=== PATIENT | male | born 1945 | race Caucasian/White ===

== ENCOUNTER 2016-06-15 07:19 | Observation (INO) | payer MEDICARE ==
--- NOTE | 2016-06-15 08:32 | RAD ---
Indication: Shortness of breath. 2 views of the chest are reviewed. There is a large left pneumothorax noted. Right lung field is clear. Pacemaker leads are in place. Patient status post changed sternal thoracotomy. IMPRESSION: Large left pneumothorax is noted.
[2016-06-15 08:43] LABS: Hematocrit 44 % (42-52); Hemoglobin 14.6 g/dl (14.0-18.0); Mean Corpuscular HGB Conc 33 g/dl (31-36); Mean Corpuscular Hemoglobin 30 pg (27-31); Mean Corpuscular Volume 89 fL (80-94); Mean Platelet Volume 9 um3 (7.4-10.4); Red Blood Count 4.93 10^6/ul (4.0-5.4); Red Cell Distribution Width 14 % (10.5-15)
[2016-06-15 08:54] LABS: Albumin 4.3 g/dL (3.2-5.2); BUN/Creatinine Ratio 22.2 (8-20); Calcium 9.7 mg/dL (8.6-10.3); EGFR African American 121.5 (>60); EGFR Non-African American 94.5 (>60); Globulin 2.8 g/dL (2-4); Potassium 3.7 mmol/L (3.5-5.0); Total Bilirubin 0.6 mg/dL (0.2-1.0); Total Protein 7.1 g/dL (6.4-8.9)
--- NOTE | 2016-06-15 09:13 | ED ---
Suresh Baugh Billy, scribed for Frankie Riley MD on 06/15/16 at 0741 . Shortness of Breath - HPI Summary HPI Summary: Patient is a 70 y/o male who presents to [facility] with intermittent SOB for 6 days. He describes the SOB as intermittent and worse with exertion, but not affected by recumbent position. Pt visited Dr. Lawson's office for these symptoms yesterday. Pt continued to experience SOB overnight and this morning. He denies CP at any time since onset, and he has no other complaints at this time. Patient reports ICD placement 6 days ago. FHx significant for CAD. - History of Current Complaint Chief Complaint: EDShortnessOfBreath Time Seen by Provider: 06/15/16 07:21 Hx Obtained From: Patient Onset/Duration: Gradual Onset, Lasting Days, Still Present Timing: Intermittent Episodes Lasting: Current Severity: Moderate Aggrevating Factors: Movement - Exertion. Alleviating Factors: Nothing - Allergy/Home Medications Allergies/Adverse Reactions: Allergies Allergy/AdvReac Type Severity Reaction Status Date / Time No Known Allergies Allergy Verified 06/15/16 07:35 PMH/Surg Hx/FS Hx/Imm Hx Endocrine/Hematology History: Reports: Hx Anticoagulant Therapy, Hx Anemia Denies: Hx Diabetes Cardiovascular History: Reports: Hx Angina - 1994, Hx Coronary Artery Disease, Hx Hypercholesterolemia, Hx Hypertension, Hx Valvular Heart Disease - artificial valve Denies: Hx Pacemaker/ICD Respiratory History: Denies: Hx Asthma History: Denies: Hx Renal Disease Musculoskeletal History: Reports: Hx Back Problems Denies: Hx Rheumatoid Arthritis, Hx Osteoporosis Sensory History: Reports: Hx Contacts or Glasses Denies: Hx Hearing Aid Opthamlomology History: Reports: Hx Contacts or Glasses Neurological History: Reports: Other Neuro Impairments/Disorders - PAIN CLINIC PT Psychiatric History: Reports: Hx Anxiety Denies: Hx Panic Disorder - Surgical History Surgery Procedure, Year, and Place: BYPASS- HEART VALVE 03/06/03 - [facility]A -101 ( PT HAS A CARD- WAS INFORMED TO BRING WITH HIM OR WON'T BE SCANNED) CONDITIONAL 5 UP TP 3T- SPAT.GRAD MAX 3000 Infectious Disease History: No Infectious Disease History: Denies: Traveled Outside the [place] in Last 30 Days - Family History Known Family History: Positive: Cardiac Disease - Social History Alcohol Use: Daily Alcohol Amount: 1/day,maybe Substance Use Type: Reports: None Smoking Status (MU): Former Smoker Type: Cigarettes Have You Smoked in the Last Year: No Review of Systems Negative: Chest Pain Positive: Shortness Of Breath All Other Systems Reviewed And Are Negative: Yes Physical Exam Triage Information Reviewed: Yes Vital Signs On Initial Exam: Initial Vitals Temp Pulse Resp BP Pulse Ox 98.4 F 83 15 180/79 96 06/15/16 07:31 06/15/16 07:31 06/15/16 07:31 06/15/16 07:31 06/15/16 07:31 Vital Signs Reviewed: Yes Appearance: Positive: Well-Appearing, No Pain Distress Skin: Positive: Warm, Skin Color Reflects Adequate Perfusion, Dry Head/Face: Positive: Normal Head/Face Inspection Eyes: Positive: Normal Neck: Positive: Supple, Nontender Respiratory/Lung Sounds: Positive: Decreased Breath Sounds - Very reduced breath sounds on the left., Other - Tachypnic. Cardiovascular: Positive: RRR Abdomen Description: Positive: Nontender, Soft Bowel Sounds: Positive: Present Musculoskeletal: Positive: Normal Neurological: Positive: Normal Psychiatric: Positive: Normal Diagnostics - Vital Signs Vital Signs Temp Pulse Resp BP Pulse Ox 06/15/16 07:31 98.4 F 83 15 180/79 96 - Laboratory Lab Results: Lab Results 06/15/16 06/15/16 06/15/16 Range/Units 07:46 07:46 07:46 WBC 9.0 (3.5-10.8) 10^3/ul RBC 4.93 (4.0-5.4) 10^6/ul Hgb 14.6 (14.0-18.0) g/dl Hct 44 (42-52) % MCV 89 (80-94) fL MCH 30 (27-31) pg MCHC 33 (31-36) g/dl RDW 14 (10.5-15) % Plt Count 156 (150-450) 10^3/ul MPV 9 (7.4-10.4) um3 Neut % (Auto) 80.8 (38-83) % Lymph % (Auto) 8.6 L (25-47) % Linn % (Auto) 6.9 (1-9) % Eos % (Auto) 3.4 (0-6) % Baso % (Auto) 0.3 (0-2) % Absolute Neuts (auto) 7.3 (1.5-7.7) 10^3/ul Absolute Lymphs (auto) 0.8 L (1.0-4.8) 10^3/ul Absolute Monos (auto) 0.6 (0-0.8) 10^3/ul Absolute Eos (auto) 0.3 (0-0.6) 10^3/ul Absolute Basos (auto) 0 (0-0.2) 10^3/ul Absolute Nucleated RBC 0 10^3/ul Nucleated RBC % 0 INR (Anticoag Therapy) 4.18 H (0.89-1.11) Sodium 136 (133-145) mmol/L Potassium 3.7 (3.5-5.0) mmol/L Chloride 104 (101-111) mmol/L Carbon Dioxide 24 (22-32) mmol/L Anion Gap 8 (2-11) mmol/L BUN 18 (6-24) mg/dL Creatinine 0.81 (0.67-1.17) mg/dL Est GFR ( Amer) 121.5 (>60) Est GFR (Non-Af Amer) 94.5 (>60) BUN/Creatinine Ratio 22.2 H (8-20) Glucose 121 H (70-100) mg/dL Calcium 9.7 (8.6-10.3) mg/dL Total Bilirubin 0.60 (0.2-1.0) mg/dL AST 24 (13-39) U/L ALT 18 (7-52) U/L Alkaline Phosphatase 88 (34-104) U/L Total Protein 7.1 (6.4-8.9) g/dL Albumin 4.3 (3.2-5.2) g/dL Globulin 2.8 (2-4) g/dL Albumin/Globulin Ratio 1.5 (1-3) Result Diagrams: 06/15/16 07:46 06/15/16 07:46 Lab Statement: Any lab studies that have been ordered have been reviewed, and results considered in the medical decision making process. - Radiology CXR Radiology Interpretation Completed By: Radiologist - IMPRESSION: Large left pneumothorax is noted. - EKG 0724 EKG Interpretation: NSR 77 bpm, no ST elevation Re-Evaluation - Re-Evaluation First Eval Re-Evaluation Time: 08:05 - CXR results reviewed with pt. Course/Dx - Course Course Of Treatment: Manan Emmanuel presented C/O SOB since placement of his ICD on last. No C/O CP. He had decreased breath sounds on the left ad a CXR confirmed a large pneumothorax. - Diagnoses Provider Diagnoses: Pneumothorax on left - Physician Notifications Discussed Care of Patient With: Dr. Hudson @ 0804. Will see pt in ED. Discharge - Discharge Plan Condition: Stable Disposition: ADMITTED TO [facility] The documentation as recorded by the Suresh copeland Billy accurately reflects the service I personally performed and the decisions made by me, Frankie Riley MD.
[2016-06-15] MEDS: NS 0.9% 1000 ML* 1,000 ML IV SCH ×2 (09:17→14:41)
--- NOTE | 2016-06-15 10:27 | HP ---
HISTORY AND PHYSICAL: DATE OF ADMISSION: 06/15/16. REASON FOR ADMISSION: Large left pneumothorax. HISTORY OF PRESENT ILLNESS: Mr. Manan Emmanuel is a 70-year-old gentleman who lives here in [place] who underwent placement of a single ICD at the [facility] on 06/09/2016. Diagnosed apparently with sustained ventricular tachycardia after he had had a elective hip surgery in [place] late last year and was noted to have some arrhythmias. This most recent procedure was done as an outpatient, and he does state that a chest x-ray was obtained post-procedure that was unremarkable. Over the last several days, he's noted some increasing shortness of breath, especially when walking downstairs. He had no chest pain, hemoptysis, and noted no other abnormality; but, as today seemed to be worse, he presented to the emergency room. On admission to the emergency room, he was noted to have stable normal vital signs with a heart rate of 83 with adequate saturations and blood pressure. A chest x-ray was obtained, which I did review. This shows the ICD placement in good position and a large left pneumothorax. Surgical consultation was obtained; and, after review, the patient is to be treated for his left pneumothorax with a tube thoracostomy and admission to the hospital. PAST MEDICAL HISTORY: 1. Coronary artery disease. 2. Aortic valve disease. 3. Hypertension. 4. Osteoarthritis. 5. Hypercholesterolemia. 6. Lumbosacral spine spondylosis with chronic pain. 7. Ventricular tachycardia. 8. Gastroesophageal reflux disease. PAST SURGICAL HISTORY: 1. Aortic valve replacement with a prosthetic aortic valve. 2. Left hip replacement. 3. Recent ICD placement. 4. Coronary bypass grafting in 2002 with aortic valve replacement, #[address] [facility]. ALLERGIES: 1. COREG. 2. AMBIEN. MEDICATIONS: Include: 1. Warfarin 10 mg daily. 2. Cialis 20 mg p.r.n. 3. Aldactone 25 mg daily. 4. Zoloft 50 mg daily. 5. Crestor 40 mg daily. 6. Iron. 7. Avapro 150 mg daily. 8. Hydrocodone p.r.n. pain. 9. Xanax 0.5 mg p.r.n. SOCIAL HISTORY: He is . 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 The patient is a former smoker; does not smoke. REVIEW OF SYSTEMS: Cerebrovascular: He had no dizziness or visual disturbances. Cardiovascular: No chest pain, shortness of breath. Pulmonary: As per above. GI: No recent reflux. No dysphagia. He has had no abdominal discomfort. Musculoskeletal: He has chronic low back discomfort. PHYSICAL EXAMINATION GENERAL: He is a well-developed slender male with normal attention to grooming. He appears to be in no acute distress, awake, alert and conversive. VITAL SIGNS: Temperature 98.4, pulse 83, respirations 15, oxygen saturation 96% , blood pressure 180/79. HEENT: His trachea was midline. Oral mucosa is slightly dry. NECK: There is no crepitus in the neck or supraclavicular areas. There is no jugular venous distension. LUNGS: Markedly decreased breath sounds on the left side. He has normal breath sounds on the right side. He has a well-healed incision with slight ecchymosis in the left anterior chest wall with a palpable ICD in place without signs of infection or drainage. There is no crepitus along the lateral posterior anterior chest wall. HEART: Regular rate and rhythm without murmurs, rubs, or gallops. ABDOMEN: Soft, nondistended. No tenderness or organomegaly. LOWER EXTREMITIES: Showed no cyanosis, edema. LABORATORY DATA: Values include an INR pending. I did review the chest x-ray today which shows a complete collapse of the left lung without evidence of midline shift, tracheal deviation. IMPRESSION: 1. Complete left pneumothorax status post percutaneous placement of an ICD on June 09, 2016 at the [facility]. 2. Medical problems as outlined above. The patient is on Coumadin. 3. Laboratory values are pending. PLAN: 1. Patient will be kept NPO and started on IV fluids. 2. We will await laboratory values including the INR. He has continued to take his Coumadin over the last several days. 3. This will require tube decompression, and I discussed the options with the patient including placement of a percutaneous pneumothorax catheter versus a small open chest tube insertion. My inclination is to proceed with a small chest tube, in light of the fact that he is probably anticoagulated, and for definitive management. I discussed the procedure both with him and his , and the fact that he will be admitted post-procedurally for careful observation and chest tube management. Risks are, but not limited to bleeding, infection, pulmonary injury, cardiovascular injury to the heart and great vessels, discomfort, and monitoring the procedure were all discussed. 4. We will be obtaining his records from the [facility]. 5. I have discussed his care with Dr. Viviana García from Cardiology; she is reviewing his records, and will give recommendations for the ICD once we have the old records. 6. The findings and the care were discussed with the patient and his . He was anticipating travel tonight on vacation with a flight. I instructed him that it would be at least several weeks after the lung is completely healed, possibly as long as a month, before he would be permitted air travel and their questions in this regard were answered. CC: Dwight Lawson MD; Wes Steward MD; [facility], [facility] [address] [id number]/[facility] #: [id number] MTDD
[2016-06-15] MEDS ORDERED: fentaNYL* 50 MCG/ML 2 ML VIAL (100 MCG VIAL) ONE (12:03)
[2016-06-15] MEDS ORDERED: Midazolam* 1 MG/ML 5 ML VIAL (5 MG) ONE (12:03)
[2016-06-15] MEDS ORDERED: KETAMINE HCL* 50 MG/ML 10 ML VIAL ONE (12:03)
[2016-06-15] MEDS ORDERED: Ondansetron INJ* 2 MG/ML VIAL ONE (12:07)
[2016-06-15] MEDS ORDERED: Propofol* 10 MG/ML 20 ML BTL IV PUSH ONE (12:07)
[2016-06-15] MEDS ORDERED: Ketorolac INJ* 30 MG/ML 1 ML VIAL ONE (12:07)
[2016-06-15] MEDS ORDERED: Lidocaine 2% PF * 5 ML VIAL ONE (12:07)
[2016-06-15] MEDS ORDERED: ceFAZolin 2 GM PREMIX (*) 2 GM/50 ML BAG IVPB ONE (12:16)
[2016-06-15] MEDS ORDERED: Lidocain 1% EPI 1:100,000 * 30 ML MDV ONE (12:35)
--- NOTE | 2016-06-15 12:57 | SURGPN ---
Brief Operative Note - Surgery Procedures: Procedures Pre-OP Diagnoses: L ptx Post-op Diagnosis: same Procedure: Left tube thoracostomy Surgeon: Lisa Asst: none Anethesia: local AGUSTIN Polanco EBL: minimal IVF: crystalloid Specimen: none Drains: 28Fr chest tube to pleurovac
[2016-06-15] MEDS ORDERED: TADALAFIL 20 MG PO PRN (13:00)
[2016-06-15] MEDS ORDERED: Acetaminophen TAB* 325 MG PO PRN (13:18)
[2016-06-15] MEDS ORDERED: HYDROmorphone INJ* 1 MG/ML CARPUJECT SYRINGE IV PRN (13:18)
[2016-06-15] MEDS ORDERED: DiMENhydriNATE IV* 50 MG/ML VIAL IV PUSH PRN (13:18)
[2016-06-15] MEDS ORDERED: HYDROcodone/ACETAMIN 5-325 MG* 1 TAB PO PRN (13:18)
--- NOTE | 2016-06-15 14:08 | RAD ---
Indication: Chest tube placement. Left pneumothorax. Single frontal view of the chest performed at 1315 hours was reviewed. Comparison is made with previous exam dated earlier the same day. Left chest tube is in place. Pneumothorax has been reduced. Right lung field is clear. IMPRESSION: LEFT CHEST TUBE IN PLACE WITH REDUCTION OF LEFT-SIDED PNEUMOTHORAX.
[2016-06-15] MEDS: oxyCODONE/Acetamin 5/325 MG* TAB PO PRN ×3 (14:40→23:37)
--- NOTE | 2016-06-15 20:35 | CONS ---
CARDIOLOGY CONSULTATION: DATE OF CONSULT: 06/15/16 REASON FOR CONSULTATION: Preoperative evaluation for chest tube for pneumothorax. CHIEF COMPLAINT: Shortness of breath. HISTORY OF PRESENT ILLNESS: Mr. Emmanuel is a 70-year-old patient followed by Dr. Dwight Lawson with a mechanical aortic valve, on chronic Coumadin. He has known atherosclerotic heart disease. He has cardiomyopathy, moderate to severe. He has a history of nonsustained ventricular tachycardia and underwent AICD implantation last week on . He, 2 days later on Monday, started to feel short of breath, but thought it was normal, did not say anything. He was seen in the office yesterday by a physician drug safety assistant and he admits he did not tell her that he had any shortness of breath. Today, it was worse, so he presented to the emergency room, where he was found to have a large pneumothorax of the left side and he will require a chest tube. Because his INR is 4, Dr. Hudson feels it is best for this to be done in the operating room as opposed to at the bedside. The patient denies any palpitations, racing of the heart, chest pain, pressure, heaviness, just the progressive dyspnea. PAST MEDICAL HISTORY: The patient has a past medical history of coronary artery disease, status post bypass surgery in 2002; cardiac catheterization 2009 showed 50% occlusion of the LAD, severe occlusive disease of the circumflex , mild disease of the right coronary artery disease with a patent ALEJANDRA to the LAD, and saphenous vein graft to the OM1 was patent; history of aortic insufficiency with aortic valve replacement at [facility] (#[address] mechanical aortic valve); history of supraventricular tachycardia, status post ablation in December 2002 at [facility]; and ventricular tachycardia, status post EP studies and single-chamber AICD implantation on 06/24. He has hypertension, dyslipidemia, and intermittently cardiomyopathy. Hypertensive heart disease, echo 01/07/16 ejection fraction 50% to 55% with mild left ventricular hypertrophy, base of the lateral wall hypokinetic, and good mechanical valve function. PAST SURGICAL HISTORY: Includes a bypass surgery in 2002 with aortic valve replacement in 2002, total hip replacement in March 2016, and AICD implantation in June 2016. OUTPATIENT MEDICATIONS: Include: 1. Metoprolol 25 mg a day. 2. Coumadin. 3. Avapro 150 mg a day. 4. Aldactone 25 mg a day. 5. Cialis p.r.n. 6. Iron 150 mg a day. 7. Sertraline 25 mg a day. 8. Xanax 0.5 mg a day. FAMILY HISTORY: Positive in that his father had a history of atherosclerotic heart disease in his 50s. 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 Stopped smoking in 2002. Drinks an alcoholic beverage a day. REVIEW OF SYSTEMS: Negative for fevers, chills, sweats, palpitations, racing, dizziness, chest pain, pressure, or heaviness. It is positive for the shortness of breath. No hematuria, dysuria, or change in appetite. All other review of systems was negative. PHYSICAL EXAM: General: He is a fit-appearing older gentleman, in no acute medical distress, mildly tachypneic, lying comfortably at 30 degrees, able to talk without gasping or appearing winded. Vital signs: The patient is 5 feet 8 inches, weighs 170 pounds with a BMI of 26. Vitals in the emergency room, blood pressure initially 180/79, pulse was 83, temperature 98.4, and oxygen saturation 96% on room air with a respiratory rate of 20. Skin: Warm, dry. No rashes or lesions. Pacemaker incision in the left subclavian fossa has nicely healed. No hematoma or ecchymosis. No evidence of infection. HEENT: Pupils equal and round. Mucous membranes moist. Neck: Without appreciable increased JVP. Breath sounds on the left side markedly diminished compared with the right, but audible. Abdomen: Soft and nontender. No epigastric discomfort. Extremities: Lower extremities are free of edema. DIAGNOSTIC STUDIES: Chest x-ray showed complete collapse of the left lung and defibrillator lead in good position. A 12-lead ECG on arrival this morning shows normal sinus rhythm at 77 beats per minute, QRS axis +90, normal AV and IV conduction time, and subtle ST flattening in the inferior leads, but no evidence of ischemia. LABORATORY DATA: White count 9, hemoglobin 14.6, and platelets 156. INR 4.18. Sodium 136, potassium 3.7, chloride 104, bicarb 24, BUN 18, creatinine 0.81, and glucose 121. ALT of 18. AICD report from [place] confirmed he has a [employer] single-chamber device. Michael programming was VVI at 40, tachy programming was to treat for tachycardia of 200 beats per minute or greater (monitor 171 beats per minute to 199 beats per minute). IMPRESSION: In summary, Manan Emmanuel is a 70-year-old gentleman, 5 days status post AICD implantation with progressive dyspnea with chest x-ray revealing a large pneumothorax on the left side, the site of his device implant. I concur with Dr. Hudson that he needs a chest tube and I concur that he will have the most control in the operating room. His mechanical aortic valve complicates issues, although it is not a new valve, there is still risk for thrombosis if we completely reverse him. I agree with Dr. Hudson's plans of FFP perioperatively but no vitamin K. We will then adjust his Coumadin dosage to aim for an INR of 2 to 3. I would keep him on his beta-laura perioperatively to minimize the risk of additional ventricular ectopy. Intraoperatively, options to minimize the risk of oversensing from Bovie with the short bursts of cautery, alternatively a magnet could be placed over the device, but this would turn off the defibrillator function and the anesthesiologist/OR would need to be prepared to externally cardiovert if needed. The patient expressed his frustration over these events. He was ready to go for a holiday in [place]. Additional recommendations will be made pending his clinical course and response to the chest tube. If he displays evidence of ventricular ectopy or atrial ectopy, there would be an option to give him additional potassium replacement to get his potassium between 4 and 5. CC: Dwight Lawson MD; Jovon Hudson MD; Dr. Jesus Pace * [id number]/[facility] #: [id number] [facility]
[2016-06-15] MEDS: ALPRAZolam TAB* 0.5 MG PO PRN ×2 (21:10→21:13)
[2016-06-16] MEDS ORDERED: Morphine INJ* 2 MG/ML 1 ML CARPUJECT ONE (00:14)
[2016-06-16] MEDS: oxyCODONE/Acetamin 5/325 MG* TAB PO PRN (00:21)
[2016-06-16] MEDS: Morphine INJ* 2 MG/ML 1 ML CARPUJECT IV PRN ×2 (00:21→06:45)
[2016-06-16] MEDS ORDERED: oxyCODONE/Acetamin 5/325 MG* TAB PO PRN (01:07)
[2016-06-16] MEDS: NS 0.9% 1000 ML* 1,000 ML IV SCH (04:22)
--- NOTE | 2016-06-16 08:55 | OP ---
CC: Dwight Lawson MD; Wes Steward MD; [facility] PROCEDURE NOTE: DATE OF OPERATION: 06/15/16 DATE OF : 47 SURGEON: Jaguar Gonzalez MD ROOF ASSEMBLER: None. ANESTHESIOLOGIST: Cassandra Polanco MD ANESTHESIA: Local MAC. PRE-OP DIAGNOSIS: Left pneumothorax. POST-OP DIAGNOSIS: Left pneumothorax. OPERATIVE PROCEDURE: Left tube thoracostomy. ESTIMATED BLOOD LOSS: Minimal. FLUIDS: Minimal crystalloid fluid given. SPECIMEN: None. DRAIN: 28-Uzbek chest tube to Pleur-evac. DESCRIPTION OF PROCEDURE: The patient was identified in the preoperative area, case was discussed w sinai Hudson. I went over the risks, benefits, and alternatives to chest tube placement with t he patient who agreed with the consideration was that this pneumothorax is secondary to AICD placeme nt last week. The patient was marked, taken to the operating room, and placed on the operating table in supine pos ition. General sedation was given. The patient's left chest was prepped and draped in the standard surgical fashion. A time-out was performed. The patient has gotten preoperative antibiotics. At approximately the fifth intercostal space, injection of lidocaine with epinephrine was done and i ncision was made. This was deepened down through the subcutaneous tissue with electrocautery right overlying the fifth intercostal space. A 28-Uzbek chest tube with trocar was then utilized, entere d into the chest. Trocar backed off and large gush of air came from the chest tube, which was then connected to Pleur-evac. It was sutured to the skin with 0 Surgipro sutures and sterile dressing wa s applied. The patient tolerated the procedure well, was brought back to the PACU where a postop est x-ray showed re-expansion of the left lung. [id number]/[facility] #: [id number]
[2016-06-16] MEDS ORDERED: WARFARIN 10 MG PO SCH (09:00)
[2016-06-16] MEDS ORDERED: Losartan TAB* 25 MG PO SCH (09:00)
[2016-06-16] MEDS ORDERED: Spironolactone TAB* 25 MG PO SCH (09:00)
[2016-06-16] MEDS ORDERED: Metoprolol Succinate XL TAB* 25 MG PO SCH (09:00)
[2016-06-16] MEDS ORDERED: Atorvastatin* 80 MG TAB PO SCH (09:00)
[2016-06-16] MEDS ORDERED: Sertraline* 100 MG TAB PO SCH (09:00)
--- NOTE | 2016-06-16 09:14 | RAD ---
INDICATION: Follow-up pneumothorax COMPARISON: Most recent chest x-rays dated June 15, 2016 TECHNIQUE: PA and lateral views of the chest were obtained. FINDINGS: The patient's left-sided chest tube is unchanged in position with the tip terminating at the upper mid level medial left lung. Unchanged from previous chest x-rays is the left upper chest cardiac pacemaker with one lead overlying the heart and sternotomy wires. The heart and mediastinum are normal in size and contour. There is no discernible pneumothorax. There is patchy infiltration of the bilateral lungs worse on the left than the right. There is left costophrenic angle blunting which likely indicates small pleural effusion. Degenerative changes of the thoracic spine includes loss of intervertebral disc height. There is no radiographic evidence of free air beneath the diaphragm IMPRESSION: NO DISCERNIBLE PNEUMOTHORAX WITH AN APPROPRIATELY POSITIONED LEFT-SIDED CHEST TUBE UNCHANGED FROM THE PREVIOUS DAYS CHEST X-RAY.
--- NOTE | 2016-06-16 09:51 | PN ---
Progress Note - Progress Note SOAP: Subjective: Feels much better this morning. No SOB and has been using both po and IV pain medication. Objective: Temp Pulse Resp BP Pulse Ox 97.5 F 66 18 149/76 94 06/16/16 07:21 06/16/16 07:21 06/16/16 09:36 06/16/16 07:21 06/16/16 07:21 Chest tube with small amount of yellow serous drainage No obvious leak on suction PEX: Comfortable Breath sounds equal bilaterally, chest tube dressing in place No crepitance CXR 06/16 reviewed--no pneumothorax and chest tube in good position on left. Assessment: Left PTX S/P chest tube insertion--lung expanded on suction without air leak Plan: Chest tube to water seal and follow-plan d/c tube in next 24 hours. Analgesia Check INR this morning. All discussed with patient this morning.
[2016-06-16 14:47] VITALS: BP 115/61
--- NOTE | 2016-06-16 16:00 | RAD ---
Indication: Chest tube removal. 2 views of the chest are reviewed and compared to previous exam done earlier the same day. The left chest tube has been removed. No recurrence of the pneumothorax is noted. Pacemaker leads are in place. IMPRESSION: Left chest tube has been removed. Pacemaker leads are in place. No pneumothorax is identified.
[2016-06-16] MEDS ORDERED: Warfarin TAB(*) 5 MG PO SCH (17:00)
--- NOTE | 2016-06-16 17:07 | PN ---
Progress Note - Progress Note Note: Chest tube removed earlier by Dr. Gonzalez. Patient is doing well at present, with no pain and no shortness of breath. RA sats 94%. PE: Heart: reg Lungs: clear to ausc cXray: no ptx A/P: ok for d/c; instructions reviewed; he'll cont warfarin 5 mg q day w/ INR in Dr. Steward's office on Sat. 06/18, then as directed. Discharge summary dictated.
--- NOTE | 2016-06-17 06:17 | DS ---
DISCHARGE SUMMARY: DATE OF ADMISSION: 06/15/16 DATE OF DISCHARGE: 06/16/16 ATTENDING SURGEON: Dr. Jovon Hudson. HOSPITAL COURSE: Please refer to admission history and physical for admission details. Essentially, the patient is a 70-year-old male who underwent ICD placement about a week earlier in [place] and who had been discharged to home. He presented to the emergency department with increasing shortness of breath. Chest x-ray showed large pneumothorax on the left. A 28-Slovenian chest tube was placed on 06/15/[address] Gonzalez with full re-expansion of the lung on followup chest x-ray. As of the morning of discharge, 06/16/16, there was no air leak noted. He was placed on water seal and subsequently the chest tube was removed by Dr. Gonzalez around noon. Followup chest x-ray showed no residual pneumothorax and as of the evening of discharge, the patient was feeling well with no pain and no shortness of breath. His room air saturation was 93% to 94 % at rest. PHYSICAL EXAM AT THE TIME OF DISCHARGE: General: Appears well and in no acute distress. Heart: Regular rate and rhythm. Lungs: Clear to auscultation. Chest tube site with dressing intact. No crepitus. IMPRESSION: Large left pneumothorax, status post left chest tube thoracostomy with subsequent removal, doing well. PLAN: The patient will be discharged. He was given instructions regarding his wound care. His INR was somewhat elevated (4.18 on presentation for which he did receive fresh frozen plasma). Therefore, he will reduce his current warfarin to 5 mg daily until an INR is obtained in Dr. tSeward's office on 06/18/16. MEDICATIONS: The patient's discharge medications will otherwise be the same as follows: 1. Sertraline 100 mg once daily. 2. Alprazolam 0.5 mg t.i.d. p.r.n. 3. Spironolactone 25 mg q. day. 4. Crestor 40 mg q. day. 5. Cialis 20 mg q. day p.r.n. 6. Poly Iron 150 Forte 1 capsule once daily. 7. Warfarin 5 mg daily or as directed by Dr. Steward. 8. Metoprolol XL 12.5 mg once daily. 9. Irbesartan 150 mg q. day. FOLLOWUP INSTRUCTIONS: Surgical followup will be as needed unless there are any problems with the wound site. He understands to contact us and/or present to the emergency department if he has experienced any of the following: Fever, chills, shortness of breath, chest pain, lightheadedness, or wound problems. HARPER TAVARES CC: Dr. Dwight Lawson; Dr. Wes Steward * [id number]/[facility] #: [id number] MTDD
== END 2016-06-16 17:50 | disposition home or self-care (01) ==
LOC: ED 07:19 → OR 10:34 → MED 12:58 → INTOOBSV 06-16 10:24 → OBSVTOIN 06-16 10:24
PROVIDERS: ADMIT Surgery; ATTEND Surgery
PROC: 0W9B00Z Drainage of Left Pleural Cavity with Drainage Device, Open Approach (ICD-10-PCS; principal; 2016-06-15 12:00)
DX: J95.811 Postprocedural pneumothorax (principal); Y83.8 Other surgical procedures as the cause of abnormal reaction of the patient, or of later complication, without mention of misadventure at the time of the procedure; Y92.9 Unspecified place or not applicable; Z95.810 Presence of automatic (implantable) cardiac defibrillator; I25.119 Atherosclerotic heart disease of native coronary artery with unspecified angina pectoris; I10 Essential (primary) hypertension; Z95.1 Presence of aortocoronary bypass graft; E78.00 Pure hypercholesterolemia, unspecified; Z95.2 Presence of prosthetic heart valve; Z79.01 Long term (current) use of anticoagulants; Z79.899 Other long term (current) drug therapy; Z88.8 Allergy status to other drugs, medicaments and biological substances; Z96.642 Presence of left artificial hip joint; Z87.891 Personal history of nicotine dependence
CPT/HCPCS: 36415; 71010; 71020; 80053; 85025; 85610; 86850; 86900; 86901; 86927; 93005; 96374; 96376; 99285; A9270-GY; G0378; J0690; J1885; J2250; J2270; J2405; J2704; J3010; P9017

== ENCOUNTER 2016-06-17 04:11 | Emergency (ER) | payer MEDICARE ==
--- NOTE | 2016-06-17 04:26 | ED ---
Shortness of Breath - HPI Summary HPI Summary: Patient presents for re-evaluation of shortness of breath. Had an incidental pneumothorax after AICD placement a couple of days ago. Chest tube placed and resolved. Had slight recurrent shortness of breath and was concerned for recurrent pneumothorax. - History of Current Complaint Chief Complaint: EDShortnessOfBreath Time Seen by Provider: 06/17/16 04:18 Hx Obtained From: Patient Onset/Duration: Gradual Onset Aggrevating Factors: Deep Breaths - Allergy/Home Medications Allergies/Adverse Reactions: Allergies Allergy/AdvReac Type Severity Reaction Status Date / Time No Known Allergies Allergy Verified 06/15/16 07:35 PMH/Surg Hx/FS Hx/Imm Hx Endocrine/Hematology History: Reports: Hx Anticoagulant Therapy, Hx Anemia Denies: Hx Diabetes Cardiovascular History: Reports: Hx Angina - 1994, Hx Coronary Artery Disease, Hx Hypercholesterolemia, Hx Hypertension, 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, Other Cardiovascular Problems/Disorders - ICD PLACED 06/09/16 Denies: Hx Pacemaker/ICD Respiratory History: Denies: Hx Asthma GI History: Reports: Hx Gastroesophageal Reflux Disease History: Denies: Hx Renal Disease Musculoskeletal History: Reports: Hx Back Problems Denies: Hx Rheumatoid Arthritis, Hx Osteoporosis Sensory History: Reports: Hx Contacts or Glasses Denies: Hx Hearing Aid Opthamlomology History: Reports: Hx Contacts or Glasses Neurological History: Reports: Other Neuro Impairments/Disorders - PAIN CLINIC PT Psychiatric History: Reports: Hx Anxiety Denies: Hx Panic Disorder - Surgical History Surgery Procedure, Year, and Place: "BYPASS- HEART VALVE 03/06/03 - [facility] 24A -101 ( PT HAS A CARD- WAS INFORMED TO BRING WITH HIM OR WON'T BE SCANNED) CONDITIONAL 5 UP TP 3T- SPAT.GRAD MAX 3000". ICD PLACED 06/09/16 STRONG. HIP REPLACEMENT 12/21 Hx Anesthesia Reactions: No Infectious Disease History: Denies: Traveled Outside the [place] in Last 30 Days - Family History Known Family History: Positive: Cardiac Disease - Social History Alcohol Use: Daily Alcohol Amount: 1/day,maybe Substance Use Type: Reports: None Hx Tobacco Use: No Smoking Status (MU): Former Smoker Type: Cigarettes Have You Smoked in the Last Year: No Review of Systems Positive: Shortness Of Breath All Other Systems Reviewed And Are Negative: Yes Physical Exam Triage Information Reviewed: Yes Vital Signs On Initial Exam: Initial Vitals Pulse Resp Pulse Ox 64 18 95 06/17/16 04:12 06/17/16 04:12 06/17/16 04:12 Vital Signs Reviewed: Yes Appearance: Positive: Well-Appearing, No Pain Distress, Well-Nourished Skin: Positive: Warm, Skin Color Reflects Adequate Perfusion, Dry, Other - Small L anterolateral transverse incison. L anterior superior AICD site is C/D/ I without erythema. Neck: Positive: Supple, Nontender, No Lymphadenopathy Respiratory/Lung Sounds: Positive: Clear to Auscultation, Breath Sounds Present Cardiovascular: Positive: Normal, RRR, Pulses are Symmetrical in both Upper and Lower Extremities Abdomen Description: Positive: Nontender, No Organomegaly, Soft Musculoskeletal: Positive: Normal, Strength/ROM Intact Neurological: Positive: Normal, Sensory/Motor Intact, Alert, Oriented to Person Place, Time, CN Intact II-III, Reflexes Intact Diagnostics - Vital Signs Vital Signs Pulse Resp Pulse Ox 06/17/16 04:12 64 18 95 - Laboratory Lab Statement: Any lab studies that have been ordered have been reviewed, and results considered in the medical decision making process. Course/Dx - Diagnoses Differential Diagnosis/HQI/PQRI: Positive: Pneumonia, Pneumothorax Provider Diagnoses: Shortness of breath Discharge - Discharge Plan Condition: Stable Disposition: HOME Patient Education Materials: Traumatic Pneumothorax (ED) Referrals: Wes Steward MD [Primary Care Provider] -
[2016-06-17 04:48] VITALS: BP 158/72
--- NOTE | 2016-06-17 08:03 | RAD ---
Indication: Shortness of breath. Cardiac disease. Former tobacco use. Comparison: June 16, 2016 Technique: Upright AP 0425 hours Report: Cardiomegaly. Median sternotomy wires. RIGHT ventricular level pacemaker lead extends from the LEFT chest wall control device. Upper normal size central pulmonary vasculature. Minimal prominence of the interstitial markings in the lower lung zones and upper lung zone pulmonary markings and rarefaction. Negative for pleural effusion or pneumothorax. IMPRESSION: Stigmata of probable chronic obstructive pulmonary disease. Potential mild interstitial edema.
== END 2016-06-17 04:47 | disposition home or self-care (01) ==
LOC: ED 04:11
DX: R06.02 Shortness of breath (principal); Z95.810 Presence of automatic (implantable) cardiac defibrillator; F41.9 Anxiety disorder, unspecified; Z79.01 Long term (current) use of anticoagulants; I20.9 Angina pectoris, unspecified; I25.10 Atherosclerotic heart disease of native coronary artery without angina pectoris; I10 Essential (primary) hypertension; E78.00 Pure hypercholesterolemia, unspecified; Z95.2 Presence of prosthetic heart valve; K21.9 Gastro-esophageal reflux disease without esophagitis; Z87.891 Personal history of nicotine dependence
CPT/HCPCS: 71010; 99282

== ENCOUNTER 2017-11-07 22:51 | Emergency (ER) | payer MEDICARE ==
[2017-11-08] MEDS ORDERED: Lidocaine 2% PF * 5 ML VIAL ONE ×2 (01:47→01:50)
[2017-11-08] MEDS ORDERED: oxyCODONE/Acetamin 5/325 MG* TAB ONE (02:05)
[2017-11-08] MEDS ORDERED: oxyCODONE/Acetamin 5/325 MG* TAB PO ONE (02:11)
--- NOTE | 2017-11-08 02:26 | ED ---
Upper Extremity Pain - HPI Summary HPI Summary: Patient complains of left wrist pain after mechanical fall at 10:30 PM tonight. Denies any other pain or injuries. Denies loss of sensation or function distally. Patient on Coumadin. - History of Current Complaint Chief Complaint: EDExtremityUpper Stated Complaint: LT WRIST INJURY Time Seen by Provider: 11/08/17 01:01 Hx Obtained From: Patient Mechanism Of Injury: Fall From A Standing Position Onset/Duration: Started Hours Ago Timing: Constant Severity Initially: Moderate Severity Currently: Moderate Pain Location: Wrist Character: Dull, Aching, Throbbing Aggravating Factor(s): Movement Alleviating Factor(s): OTC Meds Associated Signs & Symptoms: Positive: Swelling - Allergies/Home Medications Allergies/Adverse Reactions: Allergies Allergy/AdvReac Type Severity Reaction Status Date / Time No Known Allergies Allergy Verified 11/07/17 23:06 PMH/Surg Hx/FS Hx/Imm Hx Endocrine/Hematology History: Reports: Hx Anticoagulant Therapy, Hx Anemia Denies: Hx Diabetes Cardiovascular History: Reports: Hx Angina - 1994, Hx Auto Implanted Cardiovert Defib, Hx Coronary Artery Disease, Hx Hypercholesterolemia, Hx Hypertension, 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, Other Cardiovascular Problems/ Disorders - ICD PLACED 06/09/16 Denies: Hx Myocardial Infarction, Hx Pacemaker/ICD Respiratory History: Reports: Other Respiratory Problems/Disorders - pneumothorax 06/15/16 Denies: Hx Asthma, Hx Chronic Obstructive Pulmonary Disease (COPD) GI History: Reports: Hx Gastroesophageal Reflux Disease History: Denies: Hx Renal Disease Musculoskeletal History: Reports: Hx Back Problems Denies: Hx Rheumatoid Arthritis, Hx Osteoporosis Sensory History: Reports: Hx Contacts or Glasses Denies: Hx Hearing Aid Opthamlomology History: Reports: Hx Contacts or Glasses Neurological History: Reports: Other Neuro Impairments/Disorders - PAIN CLINIC PT Psychiatric History: Reports: Hx Anxiety Denies: Hx Panic Disorder - Surgical History Surgery Procedure, Year, and Place: "BYPASS- HEART VALVE 03/06/[address] - [facility] 24A -101 ( PT HAS A CARD- WAS INFORMED TO BRING WITH HIM OR WON'T BE SCANNED) CONDITIONAL 5 UP TP 3T- SPAT.GRAD MAX 3000". ICD PLACED 06/09/16 STRONG. HIP REPLACEMENT 12/21 Hx Anesthesia Reactions: No Infectious Disease History: No Infectious Disease History: Denies: Traveled Outside the US in Last 30 Days - Family History Known Family History: Positive: Cardiac Disease - Social History Alcohol Use: Weekly Alcohol Amount: 5 drinks per week Substance Use Type: Reports: None Substance Use Comment - Amount & Last Used: hydrocodone Hx Tobacco Use: No Smoking Status (MU): Former Smoker Type: Cigarettes Have You Smoked in the Last Year: No Review of Systems Constitutional: Negative Eyes: Negative ENT: Negative Cardiovascular: Negative Respiratory: Negative Gastrointestinal: Negative Genitourinary: Negative Musculoskeletal: Other Skin: Negative Neurological: Negative Psychological: Normal All Other Systems Reviewed And Are Negative: Yes Physical Exam - Summary Physical Exam Summary: No snuffbox tenderness. Obvious deformity to lateral left wrist. PMS intact distally. Flexion and extension of all fingers. No pain with palpation of left forearm, left elbow, left shoulder. Triage Information Reviewed: Yes Vital Signs On Initial Exam: Initial Vitals Temp Pulse Resp BP Pulse Ox 98.1 F 81 20 145/82 95 11/07/17 23:02 11/07/17 23:02 11/07/17 23:02 11/07/17 23:02 11/07/17 23:02 Vital Signs Reviewed: Yes Appearance: Positive: Well-Appearing Skin: Positive: Warm Head/Face: Positive: Normal Head/Face Inspection Eyes: Positive: Normal Neck: Positive: Supple Respiratory/Lung Sounds: Positive: Clear to Auscultation Cardiovascular: Positive: Normal Abdomen Description: Positive: Nontender Musculoskeletal: Positive: Normal Neurological: Positive: Normal Psychiatric: Positive: Normal AVPU Assessment: Alert - [place] Coma Scale Best Eye Response: 4 - Spontaneous Best Motor Response: 6 - Obeys Commands Best Verbal Response: 5 - Oriented Coma Scale Total: 15 Diagnostics - Vital Signs Vital Signs Temp Pulse Resp BP Pulse Ox 11/07/17 23:02 98.1 F 81 20 145/82 95 - Laboratory Lab Statement: Any lab studies that have been ordered have been reviewed, and results considered in the medical decision making process. - Radiology wrist Xray Interpretation: Positive (See Comments) - Distal ulnar fracture Radiology Interpretation Completed By: ED Physician Course/Dx - Course Course Of Treatment: Patient complains of left wrist pain after mechanical fall at 10:30 PM tonight. Denies any other pain or injuries. Denies loss of sensation or function distally. Patient on Coumadin. No snuffbox tenderness. Obvious deformity to lateral left wrist. PMS intact distally. Flexion and extension of all fingers. No pain with palpation of left forearm, left elbow, left shoulder. Reduction and splint performed by Dr. Mann. Some improvment in alignment post reduction by xray. Rx for Percocet per Dr Mann's recommendations. Follow-up with orthopedics Dr. Parker. - Diagnoses Provider Diagnoses: Distal end of ulna fracture, closed Discharge - Sign-Out/Discharge Documenting (check all that apply): Discharge/Admit/Transfer - Discharge Plan Condition: Stable Disposition: HOME Prescriptions: oxyCODONE/Acetamin 5/325 MG* [Percocet 5/325 TAB*] 1 tab PO Q4H PRN #20 tab MDD 4 tabs PRN Reason: Pain Patient Education Materials: Wrist Fracture in Adults (ED) Referrals: Wes Steward MD [Primary Care Provider] - Anh Parker MD [Medical Doctor] - Additional Instructions: Follow-up with orthopedics Dr. Parker. Return to the ED for any new or worsening symptoms - Billing Disposition and Condition Condition: STABLE Disposition: Home
--- NOTE | 2017-11-08 03:44 | ED ---
Rohan Baugh Tiffany, scribed for Mari Mann MD on 11/08/17 at 0243 . Progress - Progress Note Progress Note: 71 y/o M is a patient of Jesus SALEEM. Patient with colles fracture, needs reduction and splinting. Used hematoma block with lidocaine 2%. Colles fracture was reduced. Sugar tong splint was applied. Neurovascular intact pre- and post- application. Wrist x-ray post-reduction shows better alignment. Course/Dx - Course Course Of Treatment: Discharge completed by Jesus SALEEM. - Diagnoses Provider Diagnoses: Distal end of ulna fracture, closed Discharge - Sign-Out/Discharge Documenting (check all that apply): Discharge/Admit/Transfer - Discharge - Discharge Plan Condition: Stable Disposition: HOME Prescriptions: oxyCODONE/Acetamin 5/325 MG* [Percocet 5/325 TAB*] 1 tab PO Q4H PRN #20 tab MDD 4 tabs PRN Reason: Pain Patient Education Materials: Wrist Fracture in Adults (ED) Referrals: Anh Parker MD [Medical Doctor] - Wes Steward MD [Primary Care Provider] - Additional Instructions: Follow-up with orthopedics Dr. Parker. Return to the ED for any new or worsening symptoms The documentation as recorded by the Rohan copeland Tiffany accurately reflects the service I personally performed and the decisions made by Johnathan brown Abdul, MD.
[2017-11-08 03:45] VITALS: BP 128/76
--- NOTE | 2017-11-08 07:31 | RAD ---
INDICATION: Left wrist fracture postreduction COMPARISON: November 08, 2017 TECHNIQUE: AP, lateral, and oblique views were obtained. FINDINGS: There is interval closed reduction with application of cast.. There is impacted and comminuted intra-articular fracture distal radius without significant radiographic change. There are no additional significant bony findings. There are extensive arterial calcifications. IMPRESSION: IMPACTED INTRA-ARTICULAR FRACTURE DISTAL RADIUS.
--- NOTE | 2017-11-08 07:40 | RAD ---
INDICATION: Fall. Left wrist injury COMPARISON: June 23, 2005 TECHNIQUE: AP, lateral, and oblique views were obtained. FINDINGS: There is impacted intra-articular distal radial fracture. There is mild full angulation at the fracture apex. No other fractures are evident. There are extensive vascular calcifications. IMPRESSION: INTRA-ARTICULAR DISTAL RADIAL FRACTURE..
== END 2017-11-08 03:05 | disposition home or self-care (01) ==
LOC: ED 22:51
DX: S52.572A Other intraarticular fracture of lower end of left radius, initial encounter for closed fracture (principal); W19.XXXA Unspecified fall, initial encounter; Y92.9 Unspecified place or not applicable; Z95.810 Presence of automatic (implantable) cardiac defibrillator; Z87.891 Personal history of nicotine dependence; Z79.01 Long term (current) use of anticoagulants
CPT/HCPCS: 25605; 99282; A9270-GY

== ENCOUNTER 2017-11-13 07:07 | Day surgery (SDC) | payer MEDICARE ==
[~2017-11-13 07:07] MED LIST: Buffered Lidocaine 0.9% SYRIN* 5 ML/SYR SYRINGE INTRADERM ONE; Dexamethasone TAB* 4 MG PO ONE; Famotidine IV* 10 MG/ML 2 ML (20 mg) IV ONE; Ondansetron INJ* 2 MG/ML VIAL ONE
[2017-11-13] MEDS ORDERED: Famotidine IV* 10 MG/ML 2 ML (20 mg) ONE (07:17)
[2017-11-13] MEDS ORDERED: Dexamethasone TAB* 4 MG ONE (07:18)
[2017-11-13] MEDS ORDERED: ceFAZolin 2 GM PREMIX (*) 2 GM/50 ML BAG IVPB ONE (07:18)
[2017-11-13] MEDS ORDERED: Ondansetron ODT TAB* 4 MG ONE (07:18)
[2017-11-13] MEDS ORDERED: fentaNYL* 50 MCG/ML 2 ML VIAL (100 MCG VIAL) ONE ×2 (08:12→13:56)
[2017-11-13] MEDS ORDERED: Midazolam* 1 MG/ML 5 ML VIAL (5 MG) ONE (08:12)
[2017-11-13] MEDS ORDERED: KETAMINE HCL* 50 MG/ML 10 ML VIAL ONE (08:12)
[2017-11-13] MEDS ORDERED: Bupivacaine 0.5% PF 10 ML VIAL INJ ONE (10:05)
[2017-11-13] MEDS ORDERED: Morphine INJ* 10 MG/ML 1 ML CARPUJECT ONE (11:38)
[2017-11-13] MEDS ORDERED: Ketorolac INJ* 30 MG/ML 1 ML VIAL ONE (12:52)
[2017-11-13] MEDS ORDERED: Propofol* 10 MG/ML 20 ML BTL IV PUSH ONE (12:52)
[2017-11-13] MEDS ORDERED: PROCHLORPERAZINE INJ 5 MG/ML 2 ML VIAL ONE (12:52)
[2017-11-13] MEDS ORDERED: Lidocaine 2% PF * 5 ML VIAL ONE (12:53)
[2017-11-13] MEDS ORDERED: Phenylephrine INJ* 10 MG/ML 1 ML VIAL (10 MG) ONE (12:53)
[2017-11-13] MEDS ORDERED: Flumazenil* 0.1 MG/ML 5 ML MDV ONE (13:31)
[2017-11-13] MEDS ORDERED: Scopolamine 1.5 mg* PATCH TRANSDERM PRN (13:41)
[2017-11-13] MEDS ORDERED: oxyCODONE/Acetamin 5/325 MG* TAB PO PRN (13:41)
[2017-11-13] MEDS ORDERED: DiMENhydriNATE IV* 50 MG/ML VIAL IV PUSH PRN (13:41)
[2017-11-13] MEDS ORDERED: PROCHLORPERAZINE INJ 5 MG/ML 2 ML VIAL IV PRN (13:41)
[2017-11-13] MEDS ORDERED: Naloxone* 0.4 MG/ML 1 ML VIAL IV PRN (13:41)
[2017-11-13] MEDS ORDERED: Morphine INJ* 2 MG/ML 1 ML CARPUJECT IV PRN (13:41)
[2017-11-13] MEDS: fentaNYL* 50 MCG/ML 2 ML VIAL (100 MCG VIAL) IV PRN ×4 (13:57→14:46)
[2017-11-13] MEDS ORDERED: hydrALAZINE IV* 20 MG/ML VIAL ONE (14:07)
[2017-11-13] MEDS ORDERED: hydrALAZINE IV* 20 MG/ML VIAL IV SLOW PU ONE (14:08)
[2017-11-13] MEDS ORDERED: oxyCODONE/Acetamin 5/325 MG* TAB ONE (14:37)
[2017-11-13] MEDS ORDERED: Morphine VIAL* 10 MG/ML 1 ML VIAL ONE (14:48)
[2017-11-13 17:08] VITALS: BP 123/78
[2017-11-16] MEDS ORDERED: Scopolamine PATCH Remove* 1 NOTE MISC PATCH OFF ONE (13:42)
--- NOTE | 2017-11-22 10:54 | OP ---
DATE OF OPERATION: 11/13/17 - [facility] DATE OF : 47 SURGEON: Florentino Prieto MD MACHINIST GENERAL: HARPER Goldstein. An entry level assistant manager was needed for the entirety of the procedure. ANESTHESIA: General. PRE-OP DIAGNOSIS: Left intraarticular comminuted distal radius fracture. POST-OP DIAGNOSIS: Left intraarticular comminuted distal radius fracture. OPERATIVE PROCEDURE: Open reduction internal fixation of comminuted left intraarticular distal radius fracture. INDICATIONS: Manan is 72 years old. He fell and had a great comminuted left distal radius fracture. Postreduction x-rays showed actually more displacement of the articular fragment with the volar articular fragment sitting palmar to the lunate and the dorsal fragment sitting dorsal and impacted in the dorsal tilt. I talked to him about risks and benefits including a risk of stiffness, a risk of infection, a risk of persistent pain and dysfunction in the wrist despite doing surgery. He understood and wanted to proceed. ESTIMATED BLOOD LOSS: 2 mL. COMPLICATIONS: None. FINDINGS: Multi-fragmentary intraarticular fracture with multiple pieces including very displaced styloid piece as expected. DESCRIPTION OF PROCEDURE: Manan was seen in the preoperative holding area. The correct side, site, and procedure were identified. We came back to the operating room. Anesthesia was induced. The arm was prepped and draped in the usual fashion. A time-out was performed. The arm was exsanguinated with the Esmarch and the tourniquet inflated to 250 mmHg. I began by making a longitudinal incision over the distal FCR tendon. The dissection was carried down through the tendon sheath; this was released. The tendon was retracted ulnarly. The subsheath was released. The soft tissue interval between the FPL and the radial artery was developed. The pronator quadratus was released of its radial margin and teed back transversely distally preserving the distal 8 mm of volar capsular ligaments. As I was performing this exposure, I had went ahead and brought that very displaced volar articular piece back down into the more reduced position. I placed the hand in 10 pounds of inline traction using the Arthrex hand du. I was then able to maneuver the piece back down into the reduced position and I secured this provisionally with a couple of 0.045 K-wires placed distally out of the way of the future plate. Prior to reducing and pinning that volar piece, I placed a [place] elevator across the dorsal fracture piece and disimpacted it and loosened it up so that it was able to move and come into the reduced position with the traction. There was also a very displaced radial styloid piece. I opened both the piece and was able to gain access to my dorsal fragment through this window as well. Once I had the volar limb reduced and pinned into place, I went ahead and worked through the window created by the radial styloid piece and was able to further disimpact the dorsal lunate facet fragment and bring this back up into the reduced position. Initially, I had had the volar piece reduced but the dorsal piece was sitting still a couple of millimeters impacted. After I just impacted it, everything was looking very nicely reduced. I then took another wire and passed it from volar to dorsal securing the volar lunate fragment to the dorsal lunate fragment in the reduced position. At this point, I had the majority of the joint surface reduced that styloid piece. I went ahead and brought in my Synthes Variable Angle distal radius plate. This was pinned. The alignment of the plate was confirmed on mini C- arm fluoroscopy. I went ahead and secured the plate with one 2.4-mm cortical screw in oblong hole proximally. After I confirmed the distal to volar placement of the plate, I secured the plate with two additional 2.4-mm cortical screws proximally. I then placed 2.4-mm locking screws using the coaxial in the ulnar 3 holes of the plate. The last thing to do was to secure the styloid fragment. I had released the brachioradialis insertion off this piece. Ultimately, I was able to use a dental pick and a couple of K-wires as joystick and I was able to get that fragment back up into the reduced position. I then used the variable angle guide to secure that fragments with 2 variable angle locking screws. I had provisionally held the piece with a couple of radial styloid wires. Once I had the locking screws in place, I sequentially removed the wires and saw that the reduction was held even without the wires, so I decided to leave them out. At this point, final fluoroscopic imaging showed excellent alignment and hardware and plate placement. Everything was looking very good, so we irrigated out the wounds. The pronator was reapproximated with 3-0 Vicryl suture. Skin was closed with 4-0 Monocryl suture and Steri-Strips. The wounds were dressed appropriately and a cock-up wrist splint was applied. Plaster wrist splint was applied. The tourniquet was deflated and the hand pinked up immediately. He was woken up and taken to the recovery room in stable condition. [id number]/[facility] #: [id number] MTDMor
== END 2017-11-13 17:10 | disposition home or self-care (01) ==
LOC: OR 07:07
PROVIDERS: ATTEND Orthopaedic Surgery Hand Surgery
DX: S52.572A Other intraarticular fracture of lower end of left radius, initial encounter for closed fracture (principal); Z87.891 Personal history of nicotine dependence; W19.XXXA Unspecified fall, initial encounter; Y92.009 Unspecified place in unspecified non-institutional (private) residence as the place of occurrence of the external cause; I10 Essential (primary) hypertension; I47.2 Ventricular tachycardia; R42 Dizziness and giddiness; I25.10 Atherosclerotic heart disease of native coronary artery without angina pectoris; I35.8 Other nonrheumatic aortic valve disorders
CPT/HCPCS: 36415; 85610; A9270-GY; C1713; C1776; J0360; J0690; J0780; J1885; J2250; J2270; J2704; J3010; J8540

== ENCOUNTER 2017-12-10 09:36 | Inpatient (IN) | payer MEDICARE ==
--- NOTE | 2017-12-10 09:54 | ED ---
Psychiatric Complaint - HPI Summary HPI Summary: This is min Puckett documenting for attending Abhijit Neri MD. This patient is a 72 year old M presenting to [facility] because he states has been erratic in his behavior. He states he has had anxious fidgeting and cannot calm his movements since he broke his wrist on 11-07-17. He broke his wrist as he was attempting to walk up a set of stairs and slipped, pt was seen by Dr. Prieto for the fx and is in a cast. He states he has been upset due to a case he has been working on for the last five years. 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 Pt states he keeps telling himself cant you just act normal he also reports that his is worried because he has been dropping things recently out of both hands. Pt was seen by Dr. Nichelle BROWN and referred here for hallucinations and paranoia. He has a history of CAD and is on Coumadin, pacer in place. He had surgery in 12-11-17 and they stopped his blood thinner for 3 days and states this sx began a week after the surgery. - History Of Current Complaint Chief Complaint: EDMentalHealth Time Seen by Provider: 12/10/17 09:46 Hx Obtained From: Patient Onset/Duration: Still Present Timing: Constant Severity Initially: Moderate Severity Currently: Moderate Character: Anxious Aggravating Factor(s): Recent Stress Related History: Positive For: Prior Psychiatric Issues - Allergies/Home Medications Allergies/Adverse Reactions: Allergies Allergy/AdvReac Type Severity Reaction Status Date / Time No Known Allergies Allergy Verified 11/13/17 07:33 PMH/Surg Hx/FS Hx/Imm Hx Endocrine/Hematology History: Reports: Hx Anticoagulant Therapy, Hx Anemia - SLIGHT Denies: Hx Diabetes Cardiovascular History: Reports: Hx Angina - 1994, Hx Auto Implanted Cardiovert Defib, Hx Coronary Artery Disease, Hx Hypercholesterolemia, Hx Hypertension, Hx Pacemaker/ICD - 2016, 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, Other Cardiovascular Problems/Disorders - ICD PLACED 06/09/16 Denies: Hx Myocardial Infarction Respiratory History: Reports: Other Respiratory Problems/Disorders - pneumothorax 06/15/16 Denies: Hx Asthma, Hx Chronic Obstructive Pulmonary Disease (COPD) GI History: Reports: Hx Gastroesophageal Reflux Disease - NONE LATELY History: Denies: Hx Renal Disease Musculoskeletal History: Reports: Hx Arthritis - RIGHT HIP (REPLACEMENT 2016) , Hx Back Problems, Other Musculoskeletal History - LEFT WRIST Denies: Hx Rheumatoid Arthritis, Hx Osteoporosis Sensory History: Reports: Hx Contacts or Glasses - GLASSES Denies: Hx Hearing Aid Opthamlomology History: Reports: Hx Contacts or Glasses - GLASSES Neurological History: Reports: Other Neuro Impairments/Disorders - PAIN CLINIC PT Psychiatric History: Reports: Hx Anxiety - CONTROL WITH MED Denies: Hx Panic Disorder - Surgical History Surgery Procedure, Year, and Place: "BYPASS- HEART VALVE 03/06/03 - [facility] 24A -101 ( PT HAS A CARD- WAS INFORMED TO BRING WITH HIM OR WON'T BE SCANNED) CONDITIONAL 5 UP TP 3T- SPAT.GRAD MAX 3000". [employer] ICD PLACED 06/09/16 STRONG. 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 All Other Systems Reviewed And Are Negative: Yes Physical Exam - Summary Physical Exam Summary: Appearance: Well appearing, no pain distress Skin: warm, dry, reflects adequate perfusion Head/face: normal Eyes: EOMI, PETER ENT: normal Neck: supple, non-tender Respiratory: CTA, breath sounds present Cardiovascular: irregularly irregular heart rate, pulses symmetrical, mechanical heart sounds, pacer in the left chest wall. Abdomen: non-tender, soft Bowel Sounds: present Musculoskeletal: normal, strength/ROM intact Neuro: normal, sensory motor intact, A&Ox3 Psych: disorganized tangential thinking Triage Information Reviewed: Yes Vital Signs On Initial Exam: Initial Vitals Temp Pulse Resp BP Pulse Ox 97.0 F 103 18 92/63 98 12/10/17 09:37 08/05/18 09:37 12/10/17 09:37 12/10/17 09:37 12/10/17 09:37 Vital Signs Reviewed: Yes - Carter Coma Scale Best Eye Response: 4 - Spontaneous Best Motor Response: 6 - Obeys Commands Best Verbal Response: 5 - Oriented Coma Scale Total: 15 Diagnostics - Vital Signs Vital Signs Temp Pulse Resp BP Pulse Ox 12/10/17 09:37 97.0 F 103 18 92/63 98 - Laboratory Result Diagrams: 12/10/17 10:24 12/10/17 10:24 Lab Statement: Any lab studies that have been ordered have been reviewed, and results considered in the medical decision making process. - CT CT Brain CT Interpretation Completed By: Radiologist - No intracranial mass or hemorrhage is noted. ED physician has reviewed this radiology report. - EKG 1018 Cardiac Rate: Tachycardia EKG Rhythm: Sinus Tachycardia - at [address] Segment: Non-Specific EKG Interpretation: multiple PVCs and PACs, prolonged Qtc Re-Evaluation - Re-Evaluation First Eval Re-Evaluation Time: 11:22 Change: Unchanged Comment: I informed the mental health unit about the patient's case. Second Eval Re-Evaluation Time: 13:00 Change: Worse Comment: Patient is getting worse. He believes he is golfing in the ED and is attempting to practice his swing. Third Eval Re-Evaluation Time: 14:26 Change: Improved Comment: The patient's mental status spontaneously improved. Course/Dx - Course Course Of Treatment: Patient with disorganized thinking, tangential speech was impaired insight and logic but normal orientation. No definite hallucinations. Bizarre behaviors. This also started after he he held his Coumadin for a surgical procedure with a history of mechanical valve. 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 Evaluations performed by both neurology and psychiatry. Psychiatry feels though it is medically related and neurology agrees. They would like to have inpatient MRI, EEG and other testing done. Hospitalist was contacted and notes the patient socially. The patient had asked for a alcoholic beverage here. The hospitalist confirms suspicion of Wernicke Korsakof Syndrome and will admit for further. - Differential Dx/Clinical Impression Provider Diagnosis: Acute encephalopathy, Elevated troponin, Wernicke-Korsakoff syndrome - Physician Notifications Discussed Care Of Patient With: London Honeycutt Time Discussed With Above Provider: 10:50 Instructed by Provider To: Other - He recommended inpatient neurology consult and a possible MRI at some point during the MHE. - Critical Care Time Critical Care Time: 30-74 min - Due to this patient requiring multiple consults and complex medical decision making. CCT is EXCLUSIVE of separately billable procedures. Discharge - Sign-Out/Discharge Documenting (check all that apply): Patient Departure - admitted to Dr. 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 Non-Paretic Hand: Both Correctly Best Gaze (Only Horizontal Eye Movement): Normal Visual Field Testing: No Visual Loss Facial Paresis-Pt to Smile & Close Eyes or Grimace Symmetry: Normal/Symmetrical Motor Function - Right Arm: No Drift-Holds 10 Seconds Motor Function - Left Arm: No Drift-Holds 10 Seconds Motor Function - Right Leg: No Drift-Holds 10 Seconds Motor Function - Left Leg: No Drift-Holds 10 Seconds Limb Ataxia-Must be out of Proportion to Weakness Present: Absent Sensory (Use Pinprick to Test Arms/Legs/Trunk/Face): Normal Best Language (Describe Picture, Name Items): No Aphasia Dysarthria (Read Several Words): Normal Extinction and Inattention: No Abnormality Total Score: 0 Consult Consult: 12:00 I discussed patient care with Dr. López neurology. He has agreed to consult on the patient. 14:[address] López saw the patient he recommended admitting the patient because he believes this could be stroke related. 14:20 I discussed patient with Dr. Honeycutt and he has accepted the patient for admission. 14:[address] Steward of the patient and he states that the behavior he is exhibiting is unusual for him. The patient requested to speak to Dr. Steward and when he did he told Dr. Steward the only way he would stay for admission is if his brought him a beer.
--- OUTSIDE RECORDS SUMMARY | 2017-12-10 09:56 | XMS REPORT ---
:1945 External Reference #:[id number] Author Organization [employer] Address [address] [facility] [place] [address] Phone [phone] Care Team Providers Name Role Phone Wes Steward MD Primary Care Physician Unavailable Payers Type Date Identification Numbers Payment Subscriber Provider Health Maintenance Effective: Policy Number: Medicare Edward Gerry Emmanuel Kaley (O) 10/06/2014 [id number] Ppo Group Number: [id number] [address] PayID: [id number] [place] [address] Medigap Part B Effective: 05/08/2013 Policy Number: Medicare Gerry Brownetman [id number] Expires: 10/05/2014 Group Number: [id number] [address] PayID: [id number] [place] [address] Medigap Part B Expires: 10/05/2014 Policy Number: [id number] Medicare Gerry Juan Manuel Cholo PayID: [id number] [address] [place] [address] Medigap Part B Effective: 05/08/2013 Policy Number: [facility] Gerry Juan Manuel Cholo [id number] Expires: 10/05/2014 PayID: [id number] [address] [place] [address] Problems Date Description Provider Status Onset: 04/20/2011 Aortic valve disorder Dwight Lawson M.D. Active Onset: 09/07/2011 Coronary arteriosclerosis Dwight Lawson M.D. Active Onset: 09/07/2011 Pure hypercholesterolemia Dwight Lawson M.D. Active Onset: 09/07/2011 Benign essential hypertension Dwight Lawson M.D. Active Onset: 08/07/2013 Dizziness and giddiness Dwight Lawson M.D. Active Onset: 01/20/2015 Lumbosacral spondylosis without Hussein Isaacs M.D. Active myelopathy Onset: 01/20/2015 Enthesopathy of hip region Hussein Isaacs M.D. Active Onset: 06/17/2015 Essential hypertension Dwight Lawson M.D. Active Onset: 07/27/2015 Lumbar spondylosis Hussein Isaacs M.D. Active Onset: 06/02/2016 Paroxysmal ventricular tachycardia HARPER Powell Active Onset: 11/10/2017 Closed fracture of distal end of Florentino Prieto MD Active radius Onset: 11/10/2017 Automatic implantable cardiac Viviana García M.D. Active defibrillator in situ Onset: 11/10/2017 Arteriosclerosis of coronary artery Viviana García M.D. Active bypass graft Family History Date Family Member(s) Problem(s) Comments Father Heart Disease Father Coronary Artery Disease (CAD) 50's First Sister Alive And Well Social History Type Date Description Comments Marital Status Lives With Spouse Occupation [employer] Cigarette Use Former Cigarette Smoker ETOH Use Drinks 1 Alcoholic Beverage Per Day Smoking Patient is a former smoker quit in 2002 Recreational Drug Use Denies Drug Use Daily Caffeine Consumes on average 1 cup of regular coffee per day Exercise Type/Frequency Exercises regularly Allergies, Adverse Reactions, Alerts Date Description Reaction Status Severity Comments 03/03/2005 Coreg active ?fatigue 03/03/2005 Ambien active ? fatigue Medications Medication Date Status Form Strength Qnty SIG Indications Ordering Provider Tramadol HCL 11/13/ Active Tablets 50mg 30tabs 1-2 tablets Florentino 2018 by mouth Ida, every 6 MD hours as needed pain Crestor 06/26/ Active Tablets 40mg 90tabs 1 by mouth Jaguar Mccann 2018 every day Maya, DO FACC Furosemide 06/17/ Active Tablets 20mg 30tabs 1 tab prn Dwight 2016 basis only F. for weight Renny, increase >2 M.D. lbs one day to the next. Klor-Con M20 06/17/ Active Tablets ER 20Meq 30tabs 1 by mouth Dwight 2016 as directed F. with Renny furosemide BruceDBonilla Coumadin 03/10/ Active Tablets 10mg 1 po qd Dwight 2010 Margie Lawson M.D. Avapro 03/03/ Active Tablets 150mg 180tab 2 by mouth Dwight 2004 s every day Margie Lawson M.D. Aldactone 03/03/ Active Tablets 25mg 90tabs 1 PO qd Dwight 2004 Margie Lawson M.D. Cialis / Active Tablets Dose 12tabs qd prn Unknown 0000 Unknown Iron / Active Tablets 150mg 60tabs 1 po qd Unknown 0000 Sertraline HCL / Active Tablets 100mg 1 by mouth Unknown 0000 every day Xanax / Active Tablets 0.5mg 1 po qd Unknown 0000 Metoprolol 03/23/ Hx Tablets ER 25mg 30tabs 1/2 by Dwight Succinate ER 2016 - 24HR mouth every F. 03/21/ day Renny 2016 (stopped M.D. taking independent ly) Lidoderm 09/25/ Hx Patches 5% 30unit topical up Hussein French 2013 - s to 12 hours Ferny 03/27/ daily M.D. 2014 Celebrex 12/28/ Hx Capsules 200mg 30caps 1 po bid Hussein French 2012 - prn for Ferny 03/27/ pain - M.DBonilla 2013 limit to not more than 35 capsules per 30 day period. Atorvastatin 12/14/ Hx Tablets 40mg 90tabs 1 po qd Dwight Calcium 2012 - F. 09/03/ Renny, 2015 M.D. Gabapentin 12/11/ Hx Capsules 100mg 120cap 1 to 3 Hussein French 2012 - s capsules by Ferny 12/08/ mouth up to M.D. 2015 three times a day as needed pain Crestor 08/13/ Hx Tablets 40mg 100tab 1 po qd Dwight 2012 - s F. 12/14/ Renny 2012 M.D. Crestor 04/10/ Hx Tablets 20mg 30tabs 1 po qd Dwight 2011 - F. 08/13/ Renny, 2012 M.D. Lipitor 02/12/ Hx Tablets 80mg 30tabs 1 po qd Dwight 2011 - . 04/10/ Mauser, 2011 M.D. Lipitor 11/17/ Hx Tablets 40mg 30tabs 1 po hs Dwight 2011 - . Elizabethuser, 2011 M.D. Lipitor 09/06/ Hx Tablets 20mg 60tabs 2 po qd Dwight 2011 - . 11/17/ Elizabethuser, 2011 M.D. Niaspan 04/18/ Hx Tablets ER 500mg 30tabs 1 PO qpm Dwight 2006 - . 08/30/ Renny, 2007 M.D. Aspirin 04/18/ Hx Tablets 81mg 1 PO qd-05/09 Dwight 2006 - hour prior F. 09/12/ to Mikala Lawson, 2007 M.Mor. Coumadin 09/25/ Hx Tablets 5mg 60tabs Dwight 2006 - F. 03/10/ Renny, 2010 M.D. Nitrostat 09/25/ Hx Tablets 0.4mg 25tabs one sl Dwight 2006 Sub q5min up to F. 3 doses césar Lawson M.D. Nexium 09/25/ Hx Capsules 20mg 30caps 1 po qd Dwight 2006 - DR Margie Renny, 2008 Marlin.Tavia Wellbutrin XL 01/26/ Hx Tablets 150mg 1 po qd Dwight 2005 - F. 03/06/ Renny, 2006 Sarah Zetia 01/26/ Hx Tablets 10mg 100tab 1 PO qd Dwight 2005 - s . Renny, 2011 Sarah Lipitor 03/03/ Hx Tablets 80mg 30tabs 1 PO qd Dwight 2004 - . Renny, 2011 Marlin.D. Coumadin 03/03/ Hx Tablets 2mg 100tab use as Dwight 2004 - s directed by 09/25/ Dr. Nichelle Lawson 2006 Sarah Xanax 03/03/ Hx Tablets 0.25mg 1 PO qd Dwight 2004 - . 06/18/ Renny, 2014 Sarah Wellbutrin SR 03/03/ Hx Tablets 150mg 60tabs 1 po bid Dwight 2004 - . 01/26/ Elizabethuser, 2005 Sarah Zetia 03/03/ Hx Tablets 10mg 90tabs 1 po qd Dwight 2004 - . 01/26/ Mauser, 2005 Sarah Cardizem CD 10/21/ Hx Capsules 120mg 30caps 1 po qd Dwight 2004 - 03/03/ Mauseevans, 2004 Sarah Crestor / Hx Tablets 20mg 180tab 2 tablet Dwight 0000 - s daily at F. 06/26/ bedtime Renny 2017 Sarah Vital Signs Date Vital Result Comment 11/21/2017 Height 68 inches 5'8" Heart Rate 95 /min BP Systolic 138 mmHg BP Diastolic 78 mmHg Respiratory Rate 18 /min Body Temperature 98.0 F Pain Level 4 11/10/2017 Height 68 inches 5'8" Weight 176.50 lb without shoes Heart Rate 86 /min BP Systolic Sitting 128 mmHg Rue reg cuff BP Diastolic Sitting 90 mmHg Rue reg cuff BP Systolic Standing 140 mmHg Rue reg cuff BP Diastolic Standing 86 mmHg Rue reg cuff Respiratory Rate 16 /min BMI (Body Mass Index) 26.8 kg/m2 Ejection Fraction 40-45% date 05/02/17 ECHO 11/10/2017 Height 68 inches 5'8" Heart Rate 84 /min BP Systolic 138 mmHg BP Diastolic 80 mmHg Respiratory Rate 18 /min Pain Level 5 06/05/2017 Height 68 inches 5'8" Weight 181.75 lb w/shoes Heart Rate 70 /min BP Systolic Sitting 170 mmHg LA reg cuff BP Diastolic Sitting 92 mmHg LA reg cuff BMI (Body Mass Index) 27.6 kg/m2 Ejection Fraction 40-45% Echo 05/02/17 03/22/2017 Height 68 inches 5'8" Weight 178.50 lb with shoes Heart Rate 76 /min BP Systolic Sitting 130 mmHg LA reg cuff BP Diastolic Sitting 78 mmHg LA reg cuff BMI (Body Mass Index) 27.1 kg/m2 Ejection Fraction 40%-45% echo 10/07/16 12/06/2016 Height 68 inches 5'8" Weight 175.00 lb w/shoes Heart Rate 86 /min BP Systolic Sitting 168 mmHg LA reg cuff BP Diastolic Sitting 94 mmHg LA reg cuff BMI (Body Mass Index) 26.6 kg/m2 Ejection Fraction 40-45% Echo 10/07/16 09/22/2016 Height 68 inches 5'8" Weight 174.25 lb w/o shoes Heart Rate 72 /min BP Systolic Sitting 164 mmHg LA reg cuff BP Diastolic Sitting 84 mmHg LA reg cuff BMI (Body Mass Index) 26.5 kg/m2 Ejection Fraction 40% - 45% echo 04/04/16 06/20/2016 Weight 174.00 lb with boots Heart Rate 72 /min BP Systolic Sitting 150 mmHg LA reg cuff BP Diastolic Sitting 80 mmHg LA reg cuff O2 % BldC Oximetry 9394 % Ra Ejection Fraction 40% - 45% echo 04/04/16 06/17/2016 Heart Rate 78 /min BP Systolic 130 mmHg BP Diastolic 84 mmHg Respiratory Rate 20 /min Body Temperature 98.1 F 06/14/2016 Height 68 inches 5'8" Weight 179.00 lb Heart Rate 76 /min BP Systolic Sitting 144 mmHg Rue reg cuff BP Diastolic Sitting 98 mmHg Rue reg cuff BP Systolic Standing 146 mmHg BP Diastolic Standing 98 mmHg Respiratory Rate 16 /min BMI (Body Mass Index) 27.2 kg/m2 Ejection Fraction 40-45% 04/04/16 04/01/2016 Height 68 inches 5'8" Weight 173.00 lb with shoes Heart Rate 68 /min BP Systolic Sitting 138 mmHg Ra reg cuff BP Diastolic Sitting 80 mmHg Ra reg cuff BMI (Body Mass Index) 26.3 kg/m2 Ejection Fraction 50% - 55% echo 01/07/16 03/01/2016 Height 68 inches 5'8" Weight 175.00 lb w/o shoes Heart Rate 70 /min BP Systolic Sitting 148 mmHg LA lrg cuff BP Diastolic Sitting 82 mmHg LA lrg cuff BMI (Body Mass Index) 26.6 kg/m2 Ejection Fraction 50%-55% echo 01/07/16 12/10/2015 Height 68 inches 5'8" Weight 175.00 lb Heart Rate 72 /min BP Systolic Sitting 160 mmHg LA, reg BP Diastolic Sitting 84 mmHg LA, reg BMI (Body Mass Index) 26.6 kg/m2 Ejection Fraction 50%-55% 06/25/14 07/27/2015 Height 68 inches 5'8" Weight 179.00 lb Heart Rate 76 /min BP Systolic Sitting 130 mmHg BP Diastolic Sitting 70 mmHg Pain Level 3 BMI (Body Mass Index) 27.2 kg/m2 06/17/2015 Height 68 inches 5'8" Heart Rate 72 /min BP Systolic Sitting 150 mmHg Ra reg cuff BP Diastolic Sitting 92 mmHg Ra reg cuff Ejection Fraction 50-55 echo 06/25/14 01/20/2015 Height 68 inches 5'8" Weight 179.00 lb Heart Rate 62 /min BP Systolic Sitting 124 mmHg BP Diastolic Sitting 82 mmHg Pain Level 3 back/r leg BMI (Body Mass Index) 27.2 kg/m2 01/14/2015 Height 68 inches 5'8" Weight 179.75 lb w/shoes Heart Rate 64 /min BP Systolic Sitting 182 mmHg LA reg cuff BP Diastolic Sitting 90 mmHg LA reg cuff BMI (Body Mass Index) 27.3 kg/m2 Ejection Fraction 50-55 echo 06/25/14 06/18/2014 Height 68 inches 5'8" Heart Rate 66 /min BP Systolic 147 mmHg repeat la BP Diastolic 78 mmHg repeat la BP Systolic Sitting 152 mmHg LA, reg BP Diastolic Sitting 70 mmHg LA, reg 06/02/2014 Height 68 inches 5'8" Weight 165.00 lb Heart Rate 65 /min BP Systolic 168 mmHg BP Diastolic 97 mmHg BMI (Body Mass Index) 25.1 kg/m2 03/28/2014 Height 68 inches 5'8" Weight 183.00 lb Heart Rate 62 /min BP Systolic 174 mmHg LA reg BP Diastolic 90 mmHg LA reg BMI (Body Mass Index) 27.8 kg/m2 08/07/2013 Heart Rate 72 /min BP Systolic Sitting 158 mmHg BP Diastolic Sitting 94 mmHg 09/07/2011 Height 68.5 inches 5'8.50" Weight 181.00 lb Heart Rate 88 /min BP Systolic 110 mmHg BP Diastolic 60 mmHg Respiratory Rate 16 /min BMI (Body Mass Index) 27.1 kg/m2 08/31/2011 Height 68.5 inches 5'8.50" Weight 183.00 lb Heart Rate 76 /min BP Systolic 138 mmHg BP Diastolic 76 mmHg Respiratory Rate 16 /min BMI (Body Mass Index) 27.4 kg/m2 03/10/2011 Height 68.5 inches 5'8.50" Weight 179.00 lb Heart Rate 77 /min BP Systolic Sitting 112 mmHg BP Diastolic Sitting 64 mmHg BMI (Body Mass Index) 26.8 kg/m2 08/19/2010 Height 68.5 inches 5'8.50" Weight 178.00 lb Heart Rate 77 /min BP Systolic 120 mmHg BP Diastolic 60 mmHg Respiratory Rate 16 /min BMI (Body Mass Index) 26.7 kg/m2 08/21/2009 Height 68.5 inches 5'8.50" Weight 179.00 lb Heart Rate 76 /min BP Systolic Sitting 118 mmHg BP Diastolic Sitting 70 mmHg BMI (Body Mass Index) 26.8 kg/m2 11/13/2008 Weight 175.00 lb Heart Rate 86 /min BP Systolic Sitting 112 mmHg BP Diastolic Sitting 60 mmHg Respiratory Rate 16 /min 02/04/2008 Height 68 inches 5'8" Heart Rate 85 /min BP Systolic Sitting 142 mmHg BP Diastolic Sitting 95 mmHg 09/13/2007 Height 68 inches 5'8" Weight 174.00 lb Heart Rate 72 /min BP Systolic Sitting 130 mmHg L BP Diastolic Sitting 80 mmHg L BMI (Body Mass Index) 26.5 kg/m2 03/06/2007 Height 68 inches 5'8" Weight 173.00 lb Heart Rate 79 /min BP Systolic Sitting 134 mmHg BP Diastolic Sitting 84 mmHg BMI (Body Mass Index) 26.3 kg/m2 08/31/2006 Height 68 inches 5'8" Weight 172.00 lb Heart Rate 71 /min BP Systolic Sitting 124 mmHg L BP Diastolic Sitting 80 mmHg L BMI (Body Mass Index) 26.1 kg/m2 01/26/2006 Height 68 inches 5'8" Weight 166.00 lb Heart Rate 77 /min BP Systolic Sitting 130 mmHg R BP Diastolic Sitting 80 mmHg R BP Systolic Standing 120 mmHg R BP Diastolic Standing 80 mmHg R BMI (Body Mass Index) 25.2 kg/m2 03/03/2005 Height 68 inches 5'8" Weight 166.00 lb Heart Rate 70 /min BP Systolic Sitting 130 mmHg BP Diastolic Sitting 80 mmHg BP Systolic Standing 126 mmHg BP Diastolic Standing 84 mmHg BMI (Body Mass Index) 25.2 kg/m2 Results Test Date Test Result H/L Range Note Inr/Protime 11/13/2017 Inr 1.00 0.77-1.02 Surgical Pathology 07/07/2014 S RUN DATE: <SEE NOTE> Order 10/08/2013 Echocardiogram <pending> CBC No Diff 06/28/2011 White Blood Count 5.9 CUMM 4.8-10.8 Red Cell Count 4.93 CUMM 4.6-6.2 Hemoglobin 15.8 g/dL 14.0-18.0 Hematocrit 45 % 42-52 Mean Corpuscular Volume 91 um3 80-94 Mean Corpuscular Hemoglob 32 pg High 27-31 Mean Corpuscular HGB Cone 35 g/dL 32-36 Redcell Distribution WDTH 13 % 10.5-15 Platelet Count 207 CUMM 150-450 Mean Platelet Volume 8.1 um3 7.4-10.4 Protime 06/28/2011 Inr 1.14 High 0.88-1.13 2 Protime 13.5 SEC 10.3-13.5 3 Iron & Iron Binding Capacity 06/28/2011 Iron Total 117 g/dL 45-182 Unsaturated Iron Binding 337 g/dL Total Iron Binding Capacity 454 g/dL High 250-450 % Iron Saturation 26 % 15-55 Laboratory test finding 06/28/2011 Ferritin 51 NG/ML 24-336 Surgical Pathology 06/28/2011 Surgical Pathology 4 <SEE NOTE> Surgical Pathology 05/26/2008 Surgical Pathology 5 <SEE NOTE> 1 RUN DATE: 07/09/14 [facility] LAB LIVE PAGE 1 RUN TIME: [address] [place] [address] Specimen Inquiry Name: GERRY EMMANUEL : [address]: Gerry Anaya MD Acct: [id number] Unit: [id number] AGE: 68 Location: [facility] Re07/07/14 SEX: M Status: REG REF SPEC: [id number] VICTOR HUGO: 07/07/14- SUBM DR: Gerry Anaya MD REQ: [id number] RECD: 07/07/14-1556 STATUS: RICHARD HAMM DR: Dwight Steward MD _ ORDERED: LEVEL IV FINAL DIAGNOSIS Colon, sigmoid at 25 cm, biopsy: -- Tubular adenoma. -- No high grade dysplasia or malignancy. CLINICAL HISTORY Screening colonoscopy with GI ROS negative. Follow-up tubular adenoma. Bowel habit - every day with no blood, no warfarin bleeding POST-OPERATIVE DIAGNOSIS Screening colonoscopy to cecum - mild sigmoid restriction and loop - all excellent prep. Sigmoid diverticulosis; 5 polyps. Diverticulosis, internal hemorrhoids, AVM; polyp LESP; 4 years GROSS DESCRIPTION The specimen is received in formalin labeled, Sigmoid Nodule at 25 Cm, and consists of two braun-brown irregular to polypoid soft tissue fragments measuring 0.2 x 0.1 x 0.1 cm and 0.4 x 0.3 x 0.2 cm, which are submitted entirely in one cassette. Signed (signature on file) Theodore Beebe MD 0948 END OF REPORT * ML=Testing performed at Main Lab DEPARTMENT OF PATHOLOGY, [address] [place] [address] Theodore Beebe M.D. Director [facility] # [id number] 2 Recommended INR for Patients on Oral Anticoagulants Prophylaxis 2.0 - 3.0 Treatment of thrombosis 2.0 - 3.0 Prevention of embolism 2.0 - 3.0 Prevention of embolism from prosthetic heart valves 2.5 - 3.5 3 DIAGNOSIS,TREATMENT,AND THERAPY MUST BE BASED ON THE INR VALUE ALONE. 4 --- RUN DATE: 06/30/11 [facility] NMI LIVE PAGE 1 RUN TIME: 1300 Specimen Inquiry RUN USER: INTERFACE -- Name: GERRY EMMANUEL Status: REG REF Re06/28/11 Age/Sex: 65/M Unit#: [id number] Location: [facility] : [birth year] -- Specimen: [id number] SOUT Spec Date: 06/28/[address]: Gerry pratt MD Spec Type: SURGICAL P Received: 06/29/11 Copies to: Wes krueger MD SPECIMEN 1) BIOPSY RECTOSIGMOID NODULE AT 16 CM. 2) BIOPSY RECTOSIGMOID NODULE AT 17 CM. 3) SESSILE COLON POLYP AT 18 CM. 4) BIOPSY CECAL CAP NODULE 5) BIOPSY COLON NODULE AT 30 CM. 6) BIOPSY COLON NODULE AT 2 CM. HISTORY POST-OP DIAGNOSIS: Diverticulosis, polyps, cecal AVM CLINICAL INFORMATION: Follow-up colon polyps GROSS DESCRIPTION 1) The specimen is received in formalin labelled Gerry Emmanuel, Biopsy Rectosigmoid Nodule at 16 cm., and consists of a braun, soft tissue fragment measuring 0.6 x 0.4 x 0.2 cm. in aggregate. Submitted entirely, one cassette. 2) The specimen is received in formalin labelled Gerry Emmanuel, Biopsy Rectosigmoid Nodule at 17 cm., and consists of a braun, soft tissue fragment measuring 0.3 x 0.2 x 0.2 cm. Submitted entirely, one cassette. 3) The specimen is received in formalin labelled Gerry Emmanuel, Sessile Colon Polyp at 18 cm., and consists of an irregular braun, soft tissue fragment measuring 0.6 x 0.3 x 0.2 cm. Submitted entirely, one cassette. 4) The specimen is received in formalin labelled Gerry Emmanuel, Biopsy Cecal Cap Nodule, and consists of two braun, soft tissue fragments measuring 0.8 x 0.3 x 0.2 cm. in aggregate. Submitted entirely, one cassette. 5) The specimen is received in formalin labelled Gerry Emmanuel, Biopsy Colon Nodule at 30 cm., and consists of a braun, soft tissue fragment measuring 0.3 x 0.2 x 0.2 cm. Submitted entirely, one cassette. 6) The specimen is received in formalin labelled Gerry Emmanuel, Biopsy Colon Nodule at 2 cm., and consists of a braun soft tissue fragment measuring 0.2 x 0.2 x 0.2 cm. Submitted entirely, one cassette. -- DEPARTMENT OF PATHOLOGY, [address] [place] [address] [facility] Permit #[id number] Theodore Beebe M.D. Director Lakeisha Miguel M.D. Supervisory Historian marjorie -- -- RUN DATE: 06/30/11 [facility] NMI LIVE PAGE 2 RUN TIME: 1300 Specimen Inquiry RUN USER: INTERFACE -- Name: GERRY EMMANUEL Status: REG REF Re06/28/11 Age/Sex: 65/M Unit#: [id number] Location: END : 46 -- -- CONTINUED -- DIAGNOSIS 1) Colon, rectosigmoid at 16 cm., biopsy: Hyperplastic polyp. 2) Colon, rectosigmoid at 17 cm., biopsy: Hyperplastic polyp. 3) Colon, 18 cm., biopsy: Hyperplastic polyp. 4) Colon, cecal cap, biopsy: A. Tubular adenoma. B. No high grade dysplasia or malignancy. 5) Colon, 30 cm., biopsy: Hyperplastic change. 6) Colon, nodule at 2 cm., biopsy: Hyperplastic polyp. Signed Electronically by: THEODORE BEEBE MD 06/30/11 1259 -- -- DEPARTMENT OF PATHOLOGY, [address] [place] [address] [facility] Permit #[id number] Sarah Goins M.D. Supervisory Historian Dir knightor -- 5 --- RUN DATE: 05/28/08 [facility] NMI LIVE PAGE 1 RUN TIME: 1527 Specimen Inquiry RUN USER: INTERFACE -- Name: GERRY EMMANUEL Status: REG REF Re05/26/08 Age/Sex: 62/M Unit#: [id number] Location: [facility] : 47 -- Specimen: [id number] SOUT Spec Date: 05/26/[address]: Gerry pratt MD Spec Type: SURGICAL P Received: 05/27/08 Copies to: Wes krueger MD SPECIMEN 1) BIOPSY DISTAL DESCENDING COLON POLYP AT 50 CM. 2) BIOPSY POLYP CECAL CAP 3) COLON POLYP DISTAL SIGMOID 4) COLON POLYP MID SIGMOID AT 24 CM. HISTORY POST-OP DIAGNOSIS: Polyps CLINICAL INFORMATION: Patient for first screening colonoscopy GROSS DESCRIPTION 1) The specimen is received in formalin labelled Gerry Emmanuel, Biopsy Distal Descending Colon Polyp, and consists of two, braun, soft tissue fragments measuring 0.8 x 0.2 x 0.1 cm. Submitted entirely, one cassette. 2) The specimen is received in formalin labelled Gerry Emmanuel, Biopsy Polyp Cecal Cap, and consists of a braun, soft tissue fragment measuring 0.3 x 0.2 x 0.1 cm. Submitted entirely, one cassette. 3) The specimen is received in formalin labelled Gerry mEmanuel, Colon Polyp Distal Sigmoid, and consists of a braun, soft tissue fragment measuring 0.9 x 0.3 x 0.3 cm. Submitted entirely, one cassette. 4) The specimen is received in formalin labelled Gerry Emmanuel, Colon Polyp Mid Sigmoid at 24 cm., and consists of two, braun, soft tissue fragments measuring 0.6 x 0.2 x 0.2 cm. in aggregate. Submitted entirely, one cassette. DIAGNOSIS 1) Colon, 50 cm., biopsy: A) Tubular adenoma. B) No high grade dysplasia or malignancy. 2) Colon, cecal cap, biopsy: A) Tubular adenoma. B) No high grade dysplasia or malignancy. 3) Colon, distal sigmoid, biopsy: -- DEPARTMENT OF PATHOLOGY, [address] [place] [address] [facility] Permit #[id number] Theodore Beebe M.D. Director Lakeisha Miguel M.D. Supervisory Historian marjorie -- -- RUN DATE: 05/28/08 [facility] NMI LIVE PAGE 2 RUN TIME: 1527 Specimen Inquiry RUN USER: INTERFACE -- Name: GERRY EMMANUEL Status: REG REF Re05/26/08 Age/Sex: 62/M Unit#: [id number] Location: [facility] : 47 -- -- CONTINUED -- DIAGNOSIS (Continued) Hyperplastic polyp. 4) Colon, mid sigmoid at 24 cm., biopsy: Hyperplastic polyp. Signed Electronically by: THEODORE BEEBE MD 05/28/08 1527 -- -- DEPARTMENT OF PATHOLOGY, [address] [place] [address] [facility] Permit #[id number] Theodore Beebe M.D. Director Lakeisha Miguel M.D. Supervisory Historian Dir marjorie -- Procedures Date CPT Code Description Status 11/21/2017 00609 Short Arm Cast Application Completed 11/10/2017 47843 Icd Check Remote Up To 90 Days Single,Dual,Multiple Completed Lead 11/10/2017 52712 Icd Check Single,Dual Or Multiple In Person W/DR Eller Completed Heart Rhyth 08/17/2017 07127 Icd Eval W/Iterative Adjustmnt Single Lead Icd Completed 08/17/2017 38888 Icd Eval W/Iterative Adjustmnt Single Lead Icd Completed 06/05/2017 43180 EKG Tracing & Interpretation Completed 05/02/2017 10570 ECHO Transthoracic, Real-Time 2D With Doppler And Color Completed Flow 05/02/2017 89428 ECHO Transthoracic, Real-Time 2D With Doppler And Color Completed Flow 03/22/2017 24498 EKG Tracing & Interpretation Completed 03/17/2017 75853 Treadmill Interp/Report Only Completed 03/17/2017 52484 Stress Test Supervsn W/Out I/R Completed 01/10/2017 35381 Icd Eval W/Iterative Adjustmnt Single Lead Icd Completed 12/06/2016 68332 EKG Tracing & Interpretation Completed 10/07/2016 23055 ECHO Transthoracic, Real-Time 2D With Doppler And Color Completed Flow 09/22/2016 72683 EKG Tracing & Interpretation Completed 08/04/2016 51311 Holter Monitor Review (24 hr)dr review & interp only Completed 08/02/2016 62712 ECG Monitor/Recording W/Visual Superimposition Scanning Completed 07/26/2016 75867 Icd Eval W/Iterative Adjustmnt Single Lead Icd Completed 06/20/2016 76866 EKG Tracing & Interpretation Completed 06/15/2016 69469 Tube,Thoracostomy,Incl Water S Completed 06/14/2016 74603 EKG Tracing & Interpretation Completed 04/04/2016 24516 ECHO Transthoracic, Real-Time 2D With Doppler And Color Completed Flow 04/01/2016 48391 EKG Tracing & Interpretation Completed 03/01/2016 21398 EKG Tracing & Interpretation Completed 02/26/2016 56648 Treadmill Interp/Report Only Completed 02/26/2016 75792 Stress Test Supervsn W/Out I/R Completed 01/07/2016 61232 ECHO Transthoracic, Real-Time 2D With Doppler And Color Completed Flow 12/10/2015 48511 EKG Tracing & Interpretation Completed 06/17/2015 82603 EKG Tracing & Interpretation Completed 01/14/2015 92979 EKG Tracing & Interpretation Completed 07/07/2014 Colonoscopy Completed 06/25/2014 21439 ECHO Transthoracic, Real-Time 2D With Doppler And Color Completed Flow 06/18/2014 71849 EKG Tracing & Interpretation Completed 03/28/2014 17687 EKG Tracing & Interpretation Completed 10/08/2013 89790 ECHO Transthoracic, Real-Time 2D With Doppler And Color Completed Flow 09/16/2013 62376 Holter Monitor Review (24 hr)dr review & interp only Completed 08/07/2013 13534 EKG Tracing & Interpretation Completed 03/10/2011 98290 EKG Tracing & Interpretation Completed 08/19/2010 08040 EKG Tracing & Interpretation Completed 01/22/2010 34777 ECHO Transthoracic, Real-Time 2D With Doppler And Color Completed Flow 08/17/2009 96374 Treadmill Interp/Report Only Completed 08/17/2009 91907 Stress Test Supervsn W/Out I/R Completed 08/13/2009 51304 ECHO Transthoracic, Real-Time 2D With Doppler And Color Completed Flow 03/12/2009 67991 ECHO Transthoracic, Real-Time 2D With Doppler And Color Completed Flow 11/13/2008 06448 EKG Tracing & Interpretation Completed 02/04/2008 45440 EKG Tracing & Interpretation Completed 02/04/2008 96788 EKG Tracing & Interpretation Completed 02/04/2008 50953 ECHO/Stress Completed 02/04/2008 72619 ECHO/Stress Completed 02/04/2008 16049 Stress Test Completed 02/04/2008 63747 ECHO/Stress Completed 02/04/2008 54964 Stress Test Completed 09/13/2007 71172 EKG Tracing & Interpretation Completed 03/06/2007 52298 EKG Tracing & Interpretation Completed 09/25/2006 69059 Echocardiogram Completed 09/25/2006 17071 Stress Test Completed 09/25/2006 52405 Stress Test Completed 09/25/2006 42179 ECHO/Stress Completed 09/25/2006 10702 Color Doppler Completed 09/25/2006 01371 Pulse Doppler & Continuous Wave Completed 09/25/2006 82817 Pulse Doppler & Continuous Wave Completed 08/31/2006 11479 EKG Tracing & Interpretation Completed 01/26/2006 68322 EKG Tracing & Interpretation Completed 01/26/2006 26665 EKG Tracing & Interpretation Completed 03/03/2005 25390 EKG Tracing & Interpretation Completed 11/02/2004 53850 Holter Monitor Completed 10/28/2004 25070 Color Doppler Completed 10/28/2004 79912 Pulse Doppler & Continuous Wave Completed 10/28/2004 76410 Echocardiogram Completed 10/21/2004 66707 ECHO/Stress Completed 10/21/2004 78847 Stress Test Completed 10/21/2004 87156 IV Infusion For DX/Upt To 1 HR. Completed 10/21/2004 88006 Intro. Needle Or Intracath.,Vein Completed 10/01/2003 84671 Treadmill Interp/Report Only Completed 10/01/2003 42701 Stress Test Supervsn W/Out I/R Completed 10/01/2003 51430 ECHO/Stress Completed Encounters Type Date Location Provider CPT E/M Dx Office Visit 11/10/2017 [facility] Viviana García M.D. 50022 S52.572A 2:40p [employer] Z01.810 Z95.810 Z95.2 I25.810 I47.2 Office Visit 11/10/2017 7:45a [facility] [place] [address] S52.572A [facility] Office Visit 06/05/2017 8:20a [facility] Dwight Hanson 55318 I47.2 Sarah Lawson I25.10 I71.2 E78.00 Office Visit 03/22/2017 9:00a [facility] Dwight Lawson M.D. 84974 I47.2 I25.10 I42.9 I49.3 R06.00 Office Visit 12/06/2016 8:20a [facility] Dwight Lawson M.D. 96454 I47.2 I42.9 I25.10 I10 Office Visit 09/22/2016 10:40a [facility] Dwight Lawson M.D. 57007 I47.2 I42.9 I49.3 Office Visit 06/20/2016 10:00a [facility] HARPER Powell 58498 I10 I25.10 Z95.810 J95.811 R06.02 Office Visit 06/17/2016 11:15a [facility] [place], [address] [facility] FACS Office Visit 06/16/2016 4:44p [facility] Cole Ibrahim, [address] [facility] PA Office Visit 06/16/2016 9:27a [facility] Justin Mccann 86723 J93.9 Sarah Renteria Z95.818 Office Visit 06/16/2016 4:44p [facility] Jovon Hudson, [address] [facility] Office Visit 06/15/2016 4:42p [facility] Jovon Hudson [address] [facility] Office Visit 06/15/2016 3:23p [facility] Viviana García M.D. [address] [facility] J93.9 Z95.2 I25.10 Z95.818 Office Visit 06/14/2016 11:30a [facility] HARPER Powell 40003 I25.10 I47.2 Z95.810 Office Visit 04/01/2016 11:20a [facility] Dwight Lawson, 73341 I49.3 Tiara M.D. I25.10 I45.10 R94.31 I49.8 R53.83 I10 Office Visit 03/01/2016 9:00a [facility] Dwight Lawson, 00718 I25.10 M.D. I35.0 E78.00 I10 Office Visit 12/10/2015 8:40a [facility] Dwight Lawson, 37503 I25.10 M.D. I35.0 I10 Office Visit 07/27/2015 10:20a [facility] Hussein Isaacs, 81704 M47.816 Of Tiara Smith M70.61 Office Visit 06/17/2015 9:40a [facility] Dwight Lawson, 93252 I25.10 M.D. I35.0 I10 E78.0 Office Visit 01/20/2015 2:40p [facility] Hussein Isaacs, 71226 721.3 Of Tiara Smith 726.5 Office Visit 01/14/2015 8:40a [facility] Dwight Lawson, 37877 414.01 M.DBonilla 424.1 272.0 401.9 Office Visit 06/18/2014 8:40a [facility] Dwight Lawson M.D. 55385 424.1 414.01 272.0 Office Visit 06/02/2014 8:45a [facility] Alberto Dawkins M.D. 00844 840.4 [facility] Office Visit 03/28/2014 8:40a [facility] Dwight Lawson, 72408 780.4 M.DBonilla 424.1 414.01 272.0 401.1 401.9 Office Visit 08/07/2013 2:00p [facility] Dwight Lawson M.D. 93832 272.0 414.01 424.1 780.4 Office Visit 12/04/2012 3:40p [facility] Hussein Isaacs, 37505 724.02 Of Tiara Smith Office Visit 11/09/2012 1:00p [facility] Dwight Hanson 34612 272.0 Sarah Lawson 414.01 424.1 Office Visit 09/07/2011 8:40a [facility] Dwight Lawson M.D. 26531 424.1 414.01 272.0 401.1 Office Visit 03/10/2011 8:40a [facility] Dwight Lawson M.D. 44374 424.1 414.01 272.0 Office Visit 08/19/2010 9:40a [facility] Dwight Lawson M.D. 67206 424.1 414.01 272.0 401.1 Office Visit 04/08/2010 2:20p [facility] Hussein Isaacs, [address] [facility] Sarah 724.3 Office Visit 08/21/2009 1:40p [facility] Dwight Lawson 56099 414.01 M.DBonilla V43.3 424.1 272.0 Office Visit 08/17/2009 12:00p [facility] Dwight Lawson 94793 414.01 M.DBonilla 424.1 395.0 786.09 Office Visit 11/13/2008 8:40a [facility] Dwight Lawson 51573 414.01 M.D. V43.3 424.1 427.31 272.0 Office Visit 02/04/2008 11:30a [facility] Dwight Lawson 34730 414.01 M.D. V43.3 424.1 Office Visit 02/04/2008 9:15a [facility] Dwight Lawson 47735 414.01 M.D. V43.3 424.1 Office Visit 09/13/2007 8:40a [facility] Dwight Lawson 87691 414.01 M.D. V43.3 272.0 Office Visit 03/06/2007 8:40a [facility] Dwight Lawson 63161 414.01 M.D. V43.3 424.1 272.0 Office Visit 08/31/2006 8:20a [facility] Dwight Lawson 53842 414.01 M.D. 424.1 272.0 V43.3 Office Visit 01/26/2006 8:40a [facility] Dwight Lawson, 82035 414.01 M.DBonilla V42.2 Office Visit 03/03/2005 8:40a [facility] Dwight Lawson M.D. 06511 412 414.01 427.0 Office Visit 10/21/2004 8:20a [facility] Dwight Lawson, 49616 414.01 M.DBonilla 411.89 401.0 V45.81 Plan of Care Future Appointment(s):12/12/2017 8:45 am - Florentino Prieto MD [facility]/18/2017 9:20 am - Pacemaker Schedule at [facility]11/21/2017 - Geronimo Mullins, PAS52.572D Oth intartic fx low end l rad, subs for clos fx w chinyere healFollow up:Follow up: 3 weeks
--- OUTSIDE RECORDS SUMMARY | 2017-12-10 09:57 | XMS REPORT ---
:1945 External Reference #:[id number] Author Organization [employer] Address [address] [place] [address] Phone [phone] Care Team Providers Name Role Phone Wes Steward MD Primary Care Physician Unavailable Payers Type Date Identification Numbers Payment Subscriber Provider Health Maintenance Effective: Policy Number: Medicare Edward Gerry Emmanuel Kaley (O) 10/06/2014 [id number] Ppo Group Number: [id number] [address] PayID: [id number] [place] Juarez [address] Medigap Part B Effective: 05/08/2013 Policy Number: Medicare Gerry Brownetman [id number] Expires: 10/05/2014 Group Number: [id number] [address] PayID: [id number] [place] [address] Medigap Part B Expires: 10/05/2014 Policy Number: [id number] Medicare Gerry Juan Manuel Cholo PayID: [id number] [address] [place] [address] Medigap Part B Effective: 05/08/2013 Policy Number: [facility] Gerry Juan Manuel Cholo [id number] Expires: 10/05/2014 PayID: [id number] [address] [place] [address] Problems Date Description Provider Status Onset: 04/20/2011 [...] ventricular tachycardia HARPER Powell Active Onset: 11/10/2017 Arteriosclerosis of coronary artery Viviana García M.D. Active bypass graft Onset: 11/10/2017 Automatic implantable cardiac Viviana García M.D. Active defibrillator in situ Onset: 11/10/2017 Closed fracture of distal end of Florentino Prieto MD Active radius Family History Date Family Member(s) Problem(s) Comments Father Heart Disease Father Coronary Artery Disease (CAD) 50's First Sister Alive And Well Social History Type Date Description Comments Marital Status Lives With Spouse Occupation [employer] Cigarette Use Former Cigarette Smoker ETOH Use [...] Form Strength Qnty SIG Indications Ordering Provider Crestor 06/26/ Active Tablets 40mg 90tabs 1 by mouth Jaguar Mccann 2018 every day DO Francesco FACC Furosemide 06/17/ Active Tablets 20mg 30tabs 1 tab catherinen Dwight Umanzor basis only F. for weight Mauser, increase >2 M.D. lbs one day to the next. Klor-Con M20 06/17/ Active Tablets ER 20Meq 30tabs 1 by mouth Dwight 2016 as directed Fsarah Piper M.D. Coumadin 03/10/ Active Tablets 10mg 1 po [...] Hx Tablets ER 25mg 30tabs 1/2 by Dwihgt Succinate ER 2016 - 24HR mouth every F. 03/21/ day Renny 2016 (stopped M.D. taking independent ly) Lidoderm 09/25/ Hx Patches 5% 30unit topical up Hussein French 2013 - s to 12 hours Ferny 03/27/ daily M.DBonilla 2014 Celebrex 12/28/ Hx Capsules 200mg 30caps 1 po bid Hussein French 2012 - prn for Ferny 03/27/ pain - M.DBonilla 2013 limit to not more than 35 capsules per 30 day period. Atorvastatin 12/14/ Hx Tablets 40mg 90tabs 1 po qd Dwight Calcium 2012 - . 09/03/ Renny, 2015 M.D. Gabapentin 12/11/ Hx Capsules 100mg 120cap 1 to 3 Hussein French 2012 - s capsules by Ferny 12/08/ mouth up to M.D. 2016 three times a day as needed pain Crestor 08/13/ Hx Tablets 40mg 100tab 1 po qd Dwight 2012 - s F. 12/14/ Renny, 2012 M.D. Crestor 04/10/ Hx Tablets 20mg 30tabs 1 po qd Dwight 2011 - F. 08/13/ Renny, 2012 M.D. Lipitor 02/12/ Hx Tablets 80mg 30tabs 1 po qd Dwight 2011 - . Renny, 2011 Olena.Mor. Lipitor 11/17/ Hx Tablets 40mg 30tabs 1 po hs Dwight 2011 - . Elizabethuseevans, 2011 M.D. Lipitor 09/06/ Hx Tablets 20mg 60tabs 2 po qd Dwight 2011 - . 11/17/ Renny, 2011 Olena.Mor. Niaspan 04/18/ Hx Tablets ER 500mg 30tabs 1 PO qpm Dwight 2006 - . 08/30/ Renny, 2007 M.D. Aspirin 04/18/ Hx Tablets 81mg 1 PO qd-05/09 Dwight 2006 - hour prior F. 09/12/ to Mikala Lawson, 2007 Olena.Tavia Coumadin 09/25/ Hx Tablets 5mg 60tabs Dwight 2006 - . 03/10/ Renny, 2010 Olena.Tavia Nitrostat 09/25/ Hx Tablets 0.4mg 25tabs one sl Dwight 2006 Sub q5min up to F. 3 doses césar Lawson M.D. Nexium 09/25/ Hx Capsules 20mg 30caps 1 po qd Dwight 2006 - FBonilla Renny, 2008 Sarah Wellbutrin XL 01/26/ Hx Tablets 150mg 1 po qd Dwight 2005 - F. 03/06/ Renny, 2006 Sarah Zetia 01/26/ Hx Tablets 10mg 100tab 1 PO qd Dwight 2005 - s . Renny, 2011 Sarah Lipitor 03/03/ Hx Tablets 80mg 30tabs 1 PO qd Dwight 2004 - . Renny, 2011 Sarah Coumadin 03/03/ Hx Tablets 2mg 100tab use as Dwight 2004 - s directed by 09/25/ Dr. Nichelle Lawson, 2006 Sarah Xanax 03/03/ Hx Tablets 0.25mg 1 PO qd Dwight 2004 - F. 06/18/ Renny, 2015 Sarah Wellbutrin SR 03/03/ Hx Tablets 150mg 60tabs 1 po bid Dwight 2004 - . 01/26/ Mauser, 2005 Sarha Zetia 03/03/ Hx Tablets 10mg 90tabs 1 po qd Dwight 2004 - . 01/26/ Mauser, 2005 Sarah Griffinzeolena CD 10/21/ Hx Capsules 120mg 30caps 1 po qd Dwight 2004 - . 03/03/ Maklaudia 2004 Sarah Crestor / Hx Tablets 20mg 180tab 2 tablet Dwight 0000 - s daily at . 06/26/ bedtime Renny 2017 Sarah Vital Signs Date Vital Result Comment 11/10/2017 Height 68 inches 5'8" Weight 176.50 [...] Test Date Test Result H/L Range Note Surgical Pathology 07/07/2014 S RUN DATE: <SEE [...] 5 <SEE NOTE> 1 RUN DATE: 07/09/14 [facility] LAB LIVE PAGE 1 RUN TIME: [address] [place] [address] Specimen Inquiry Name: GERRY EMMANUEL : [address]: Gerry Anaya MD Acct: [id number] Unit: [id number] AGE: 68 Location: [facility] Re07/07/14 SEX: M Status: REG REF SPEC: [id number] VICTOR HUGO: 07/07/14- SUBM DR: Gerry Anaya MD REQ: [id number] RECD: 07/07/146100 STATUS: RICHARD HAMM DR: Dwight Steward MD [...] performed at Main Lab DEPARTMENT OF PATHOLOGY, [address] [place] [address] Theodore Beebe M.D. Director [facility] # [id number] 2 Recommended INR for Patients on Oral Anticoagulants Prophylaxis 2.0 - 3.0 Treatment of thrombosis 2.0 - 3.0 Prevention of embolism 2.0 - 3.0 Prevention of embolism from prosthetic heart valves 2.5 - 3.5 3 DIAGNOSIS,TREATMENT,AND THERAPY MUST BE BASED ON THE INR VALUE ALONE. 4 --- RUN DATE: 06/30/11 [facility] NMI LIVE PAGE 1 RUN TIME: 1300 Specimen Inquiry RUN USER: INTERFACE -- Name: GERRY EMMANUEL Status: REG REF Re06/28/11 Age/Sex: 65/M Unit#: [id number] Location: [facility] : [birth year] -- Specimen: [id number] SOUT Spec Date: 06/28/[address]: Gerry [...] entirely, one cassette. -- DEPARTMENT OF PATHOLOGY, [address] [place] [address] [facility] Permit #[id number] Theodore Beebe M.D. Director Lakeisha Miguel M.D. Warning Analyst Dir marjorie -- -- RUN DATE: 06/30/11 [facility] NMI LIVE PAGE 2 RUN TIME: 1300 Specimen Inquiry RUN USER: INTERFACE -- Name: GERRY EMMANUEL Status: REG REF Re06/28/11 Age/Sex: 65/M Unit#: [id number] Location: [facility] : [birth year] -- -- CONTINUED -- DIAGNOSIS [...] 06/30/11 1259 -- -- DEPARTMENT OF PATHOLOGY, [address] [place] [address] [facility] Permit #[id number] Sarah Goins M.D. Warning Analyst Dir amador -- 5 --- RUN DATE: 05/28/08 [facility] NMI LIVE PAGE 1 RUN TIME: 1527 Specimen Inquiry RUN USER: INTERFACE -- Name: GERRY EMMANUEL [facility]#: [id number] Status: REG REF Re05/26/08 Age/Sex: 62/M Unit#: [id number] Location: [address] [place] [address]. : [birth year] -- Specimen: [id number] SOUT Spec Date: 05/26/08 [facility] Dr: Gerry pratt MD Spec Type: SURGICAL [...] in formalin labelled Gerry Emmanuel, Colon Polyp Distal Sigmoid, and consists of a braun, soft tissue fragment measuring 0.9 x 0.3 x 0.3 cm. Submitted entirely, one cassette. 4) The specimen is received in formalin labelled Gerry PrattBonilla BrowneCholo, Colon Polyp Mid Sigmoid at 24 cm., [...] distal sigmoid, biopsy: -- DEPARTMENT OF PATHOLOGY, [address] [place] [address] [facility] Permit #[id number] Theodore Beebe M.D. Director Lakeisha Miguel M.D. Warning Analyst Dir knightor -- -- [facility] DATE: [facility]28/[facility]: 1527 Specimen Inquiry RUN USER: INTERFACE -- Name: GERRY EMMANUEL Status: REG REF Re05/26/08 Age/Sex: 62/M Unit#: [id number] Location: [address] [place] [address].O.B. : [birth year] -- -- CONTINUED -- DIAGNOSIS (Continued) Hyperplastic polyp. 4) Colon, mid sigmoid at 24 cm., biopsy: Hyperplastic polyp. Signed Electronically by: THEODORE BEEBE MD 05/28/08 1527 -- -- DEPARTMENT OF PATHOLOGY, [address] [place] [address] [facility] Permit #[id number] Theodore Beebe M.D. Director Lakeisha Miguel M.D. Warning Analyst Dir marjorie -- Procedures Date CPT Code Description Status 11/10/2017 96206 EKG Tracing & Interpretation Completed 08/17/2017 95428 Icd Eval W/Iterative Adjustmnt Single Lead Icd Completed 08/17/2017 16887 Icd Eval W/Iterative Adjustmnt Single Lead Icd Completed 06/05/2017 04017 EKG Tracing & Interpretation Completed 05/02/2017 11985 ECHO Transthoracic, Real-Time 2D With Doppler And Color Completed Flow 05/02/2017 55090 ECHO Transthoracic, Real-Time 2D With Doppler And Color Completed Flow 03/22/2017 39757 EKG Tracing & Interpretation Completed 03/17/2017 55434 Treadmill Interp/Report Only Completed 03/17/2017 28074 Stress Test Supervsn W/Out I/R Completed 01/10/2017 72430 Icd Eval W/Iterative Adjustmnt Single Lead Icd Completed 12/06/2016 93770 EKG Tracing & Interpretation Completed 10/07/2016 31455 ECHO Transthoracic, Real-Time 2D With Doppler And Color Completed Flow 09/22/2016 74449 EKG Tracing & Interpretation Completed 08/04/2016 24770 Holter Monitor Review (24 hr)dr review & interp only Completed 08/02/2016 86571 ECG Monitor/Recording W/Visual Superimposition Scanning Completed 07/26/2016 94649 Icd Eval W/Iterative Adjustmnt Single Lead Icd Completed 06/20/2016 13989 EKG Tracing & Interpretation Completed 06/15/2016 45590 Tube,Thoracostomy,Incl Water S Completed 06/14/2016 35802 EKG Tracing & Interpretation Completed 04/04/2016 60902 ECHO Transthoracic, Real-Time 2D With Doppler And Color Completed Flow 04/01/2016 51561 EKG Tracing & Interpretation Completed 03/01/2016 30776 EKG Tracing & Interpretation Completed 02/26/2016 68816 Treadmill Interp/Report Only Completed 02/26/2016 92605 Stress Test Supervsn W/Out I/R Completed 01/07/2016 37215 ECHO Transthoracic, Real-Time 2D With Doppler And Color Completed Flow 12/10/2015 78822 EKG Tracing & Interpretation Completed 06/17/2015 24261 EKG Tracing & Interpretation Completed 01/14/2015 83110 EKG Tracing & Interpretation Completed 07/07/2014 Colonoscopy Completed 06/25/2014 73966 ECHO Transthoracic, Real-Time 2D With Doppler And Color Completed Flow 06/18/2014 54136 EKG Tracing & Interpretation Completed 03/28/2014 93710 EKG Tracing & Interpretation Completed 10/08/2013 79409 ECHO Transthoracic, Real-Time 2D With Doppler And Color Completed Flow 09/16/2013 33098 Holter Monitor Review (24 hr)dr review & interp only Completed 08/07/2013 94601 EKG Tracing & Interpretation Completed 03/10/2011 19584 EKG Tracing & Interpretation Completed 08/19/2010 87331 EKG Tracing & Interpretation Completed 01/22/2010 31751 ECHO Transthoracic, Real-Time 2D With Doppler And Color Completed Flow 08/17/2009 99954 Treadmill Interp/Report Only Completed 08/17/2009 02634 Stress Test Supervsn W/Out I/R Completed 08/13/2009 37157 ECHO Transthoracic, Real-Time 2D With Doppler And Color Completed Flow 03/12/2009 02581 ECHO Transthoracic, Real-Time 2D With Doppler And Color Completed Flow 11/13/2008 90257 EKG Tracing & Interpretation Completed 02/04/2008 51911 EKG Tracing & Interpretation Completed 02/04/2008 46853 EKG Tracing & Interpretation Completed 02/04/2008 46894 ECHO/Stress Completed 02/04/2008 30582 ECHO/Stress Completed 02/04/2008 61263 Stress Test Completed 02/04/2008 69190 ECHO/Stress Completed 02/04/2008 82400 Stress Test Completed 09/13/2007 37147 EKG Tracing & Interpretation Completed 03/06/2007 64724 EKG Tracing & Interpretation Completed 09/25/2006 07346 Echocardiogram Completed 09/25/2006 25874 Stress Test Completed 09/25/2006 05080 Stress Test Completed 09/25/2006 76096 ECHO/Stress Completed 09/25/2006 72763 Color Doppler Completed 09/25/2006 13982 Pulse Doppler & Continuous Wave Completed 09/25/2006 34401 Pulse Doppler & Continuous Wave Completed 08/31/2006 79864 EKG Tracing & Interpretation Completed 01/26/2006 73429 EKG Tracing & Interpretation Completed 01/26/2006 10262 EKG Tracing & Interpretation Completed 03/03/2005 36744 EKG Tracing & Interpretation Completed 11/02/2004 53727 Holter Monitor Completed 10/28/2004 89131 Color Doppler Completed 10/28/2004 83103 Pulse Doppler & Continuous Wave Completed 10/28/2004 03492 Echocardiogram Completed 10/21/2004 04406 ECHO/Stress Completed 10/21/2004 99269 Stress Test Completed 10/21/2004 80559 IV Infusion For DX/Upt To 1 HR. Completed 10/21/2004 53399 Intro. Needle Or Intracath.,Vein Completed 10/01/2003 26708 Treadmill Interp/Report Only Completed 10/01/2003 28155 Stress Test Supervsn W/Out I/R Completed 10/01/2003 05261 ECHO/Stress Completed Encounters Type Date Location Provider CPT E/M Dx Office Visit 06/05/2017 8:20a [facility] Dwight Lawson 13786 I47.2 Sarah I25.10 I71.2 E78.00 Office Visit 03/22/2017 9:00a [facility] Dwight Lawson M.D. 69005 I47.2 I25.10 I42.9 I49.3 R06.00 Office Visit 12/06/2016 8:20a [facility] Dwight Lawson M.D. 20990 I47.2 I42.9 I25.10 I10 Office Visit 09/22/2016 10:40a [facility] Dwight Lawson M.D. 06245 I47.2 I42.9 I49.3 Office Visit 06/20/2016 10:00a [facility] HARPER Powell 47008 I10 I25.10 Z95.810 J95.811 R06.02 Office Visit 06/17/2016 11:15a [facility] [place], [address] J95.811 Of [facility] FACS Office Visit 06/16/2016 4:44p [facility] Jovon Hudson, 52672 J95.811 Of [facility] Office Visit 06/16/2016 4:44p [facility] Cole Ibrahim, 26857 J95.811 Of [facility] PA Office Visit 06/16/2016 9:27a [facility] Haimbhumikacecile SBonilla 47312 J93.9 Sarah Renteria Z95.818 Office Visit 06/15/2016 3:23p [facility] Of Viviana García M.D. 91010 Z01.810 [facility] J93.9 Z95.2 I25.10 Z95.818 Office Visit 06/15/2016 4:42p [facility] Jovon Hudson, 27214 J95.811 Of [facility] Office Visit 06/14/2016 11:30a [facility] Of HARPER Powell 95620 I25.10 [facility] I47.2 Z95.810 Office Visit 04/01/2016 11:20a [facility] Of Dwight Lawson, 24714 I49.3 [facility] M.D. I25.10 I45.10 R94.31 I49.8 R53.83 I10 Office Visit 03/01/2016 9:00a [facility] Dwight Lawson, 61944 I25.10 M.DBonilla I35.0 E78.00 I10 Office Visit 12/10/2015 8:40a [facility] Dwight Lawson, 90567 I25.10 M.DBonilla I35.0 I10 Office Visit 07/27/2015 10:20a [facility] Hussein Isaacs, 81480 M47.816 Of [facility] Sarah M70.61 Office Visit 06/17/2015 9:40a [facility] Dwight Lawson, 58833 I25.10 MBonillaDBonilla I35.0 I10 E78.0 Office Visit 01/20/2015 2:40p [facility] Hussein Isaacs, 52377 721.3 Of Tiara Smith 726.5 Office Visit 01/14/2015 8:40a [facility] Dwight Lawson 02939 414.01 MBonillaDBonilla 424.1 272.0 401.9 Office Visit 06/18/2014 8:40a [facility] Dwight Lawson M.D. 52273 424.1 414.01 272.0 Office Visit 06/02/2014 8:45a [facility] Alberto Dawkins M.D. 53101 840.4 [facility] Office Visit 03/28/2014 8:40a [facility] Dwight Lawson 28291 780.4 MIlan 424.1 414.01 272.0 401.1 401.9 Office Visit 08/07/2013 2:00p [facility] Dwight Lawson M.D. 47397 272.0 414.01 424.1 780.4 Office Visit 12/04/2012 3:40p [facility] Hussein Isaacs, 34628 724.02 Of Tiara Smith Office Visit 11/09/2012 1:00p [facility] Dwight Hanson 21465 272.0 Sarah Lawson 414.01 424.1 Office Visit 09/07/2011 8:40a [facility] Dwight Lawson M.D. 95289 424.1 414.01 272.0 401.1 Office Visit 03/10/2011 8:40a [facility] Dwight Lawson M.D. 03566 424.1 414.01 272.0 Office Visit 08/19/2010 9:40a [facility] Dwight Lawson M.D. 94354 424.1 414.01 272.0 401.1 Office Visit 04/08/2010 2:20p [facility] Hussein Isaacs, 47842 724.02 Of Tiara Smith 724.3 Office Visit 08/21/2009 1:40p [facility] Dwight Lawson 70051 414.01 Sarah V43.3 424.1 272.0 Office Visit 08/17/2009 12:00p [facility] Dwight KasperBonilla Elizabethklaudia, 07804 414.01 M.D. 424.1 395.0 786.09 Office Visit 11/13/2008 8:40a [facility] Dwight KasperBonilla Lawson, 02462 414.01 M.D. V43.3 424.1 427.31 272.0 Office Visit 02/04/2008 11:30a [facility] Dwight KasperBonilla Lawson, 28741 414.01 M.D. V43.3 424.1 Office Visit 02/04/2008 9:15a [facility] Dwight KasperBonilla Lawson, 67248 414.01 M.D. V43.3 424.1 Office Visit 09/13/2007 8:40a [facility] Dwight FBonilla Lawson, 66604 414.01 M.D. V43.3 272.0 Office Visit 03/06/2007 8:40a [facility] Dwight RanjithBonilla Lawson, 85073 414.01 M.D. V43.3 424.1 272.0 Office Visit 08/31/2006 8:20a [facility] Dwight FBonilla Lawson, 28095 414.01 M.D. 424.1 272.0 V43.3 Office Visit 01/26/2006 8:40a [facility] Dwight RanjithBonilla Lawson, 07061 414.01 M.D. V42.2 Office Visit 03/03/2005 8:40a [facility] Dwight Lawson M.D. 42122 412 414.01 427.0 Office Visit 10/21/2004 8:20a [facility] Dwight FBonilla Lawson, 52835 414.01 M.D. 411.89 401.0 V45.81 Plan of Care Future Appointment(s):11/13/2017 1:00 pm - HARPER Goldstein at [facility]11/13/2017 1:00 pm - Florentino Prieto MD at [facility]11/21/2017 10:00 am - HARPER Goldstein at [facility]11/13/2017 1:00 pm - HARPER Goldstein at [facility] 9:20 am - [facility]/10[facility]2017 - Viviana García M.D.S52.572A Ot intartic fracture of lower end of left radius, initFollow up:Release [address] StewardZ01.810 Encounter for preprocedural cardiovascular examinationComments:OK to procede with surgury w/o additional cardiac testing.Z95.810 Presence of automatic (implantable) cardiac defibrillatorFollow up:ICD check, rhythm only (done).Z95.2 Presence of prosthetic heart hfnctF56.810 Atherosclerosis of CABG w/o angina pectoris
[2017-12-10 10:33] LABS: ABS Basophils 0 10^3/ul (0-0.2); ABS Eosinophils 0 10^3/ul (0-0.6); ABS Lymphocytes 0.8 10^3/ul (1.0-4.8); ABS Monocytes 0.6 10^3/ul (0-0.8); ABS Neutrophils 5.9 10^3/ul (1.5-7.7); ABS Nucleated RBC 0 10^3/ul; Eosinophil % 0.4 % (0-6); Hematocrit 42 % (42-52); Hemoglobin 14.1 g/dl (14.0-18.0); Lymphocyte % 10.3 % (25-47); Mean Corpuscular HGB Conc 34 g/dl (31-36); Mean Corpuscular Hemoglobin 31 pg (27-31); Mean Corpuscular Volume 92 fL (80-94); Nucleated Red Blood Cells % 0; Platelet Count 207 10^3/ul (150-450); Red Blood Count 4.54 10^6/ul (4.00-5.40); Red Cell Distribution Width 14 % (10.5-15); White Blood Count 7.4 10^3/ul (3.5-10.8)
[2017-12-10 10:51] LABS: EGFR Non-African American 75.4 (>60)
--- NOTE | 2017-12-10 10:58 | RAD ---
Indication: Confusion. CT of the brain was performed without IV contrast. Ventricular structures are midline. No midline shift is noted. The extra-axial spaces are unremarkable. There is no evidence of intracranial mass or hemorrhage. No other high or low density lesions are identified. There is motion artifact noted. Mastoid air cells and paranasal sinuses are otherwise unremarkable. IMPRESSION: No intracranial mass or hemorrhage is noted.
[2017-12-10 11:11] LABS: INR 1.78 (0.77-1.02)
[2017-12-10] MEDS ORDERED: NS 0.9% 1000 ML* 1,000 ML IV ONE (11:19)
[2017-12-10] MEDS ORDERED: Aspirin 81 mg CHEW TAB* 81 MG TAB.CHEW PO ONE (14:14)
[2017-12-10] MEDS ORDERED: Ondansetron INJ* 2 MG/ML VIAL IV PRN (14:18)
[2017-12-10] MEDS ORDERED: Acetaminophen TAB* 325 MG PO PRN (14:18)
[2017-12-10] MEDS ORDERED: Potassium Chlor TAB* 10 MEQ TAB.ER PO ONE (14:27)
[2017-12-10] MEDS ORDERED: NS 0.9% 1000 ML* 1,000 ML IV SCH (14:30)
[2017-12-10] MEDS ORDERED: Thiamine IV* 500 MG in NS 0.9% 250 ML* 250 ML IV ONE (14:36)
--- NOTE | 2017-12-10 15:09 | CONS ---
NEUROLOGY CONSULT REPORT: DATE OF CONSULT: 12/10/17. REQUESTING PHYSICIAN: Dr. Neri in the ED. DICTATION ENDS ABRUPTLY (Phone was disconnected early during the dictation. Please refer to the other complete neurology consultation note). [id number]/[facility] #: [id number] MTDD
[2017-12-10] MEDS ORDERED: Potassium Chlor TAB* 20 MEQ TAB.ER PO PRN (15:39)
[2017-12-10] MEDS ORDERED: HYDROcodone/ACETAMIN 5-325 MG* 1 TAB PO PRN (15:39)
[2017-12-10] MEDS ORDERED: ALPRAZolam TAB* 0.5 MG PO PRN (15:39)
[2017-12-10] MEDS ORDERED: oxyCODONE/Acetamin 5/325 MG* TAB PO PRN (15:39)
[2017-12-10] MEDS ORDERED: Furosemide TAB* 20 MG PO PRN (15:39)
[2017-12-10] MEDS: LORazepam INJ* 2 MG/ML 1 ML VIAL IM SCH ×3 (16:28→20:14)
[2017-12-10] MEDS: Folic Acid TAB* 1 MG PO SCH (16:29)
[2017-12-10] MEDS: Multivitamins/Minerals TAB PO SCH (16:29)
[2017-12-10] MEDS ORDERED: Warfarin TAB(*) 10 MG PO SCH ×2 (17:00→21:00)
--- NOTE | 2017-12-10 17:51 | CONS ---
NEUROLOGY CONSULT REPORT: DATE OF CONSULT: 12/10/17 REQUESTING PHYSICIAN: Dr. Neri (ED physician) REASON FOR CONSULT: Change in mood. HISTORY OF PRESENT ILLNESS: The patient is a 72-year-old right-handed male. It seems the patient was seen by Dr. Steward, his primary care physician and was sent here for evaluation of "hallucinations and paranoia" per the ED notes. The patient had a mechanical fall in early November, which led to a fracture of his left wrist and he had a surgery on 11/10/17. He is chronically on Coumadin and the anticoagulation was discontinued before the surgery and restarted immediately after. Since a few days after the surgery the patient has been feeling a bit more "restless" and "anxious" and per his also had increased irritability. Patient's also reports that he has been "dropping" things, but when asked specifically to elaborate it turns out that his hand/arm have been bumping into things such as bottle of water on the desk and spilling the water over the desk or incidents of this nature; they think it is mostly due to tremor. Both patient and his state that he has been working long hours without adequate rest and sleep or eating properly, specially in the past few weeks. In addition, the patient states had a difficult case that he has been working on it at works and that has been stressful. The patient reports all of his symptoms to the stress as a result of the cast on his wrist which prevents him from doing what he enjoys such as golfing, working long hours, and not sleeping enough. As mentioned, the above started a few days after his wrist surgery, and says has escalated in the past. However, his has noted that maybe in the past year he has not been as good with directions while driving as he has been in the past. She also mentions that sometimes he has been noted by his partners in the office that he goes to the office and he starts looking for something and is not able to find it; although his thinks this is new, the patient states he has been always like that and there is nothing new about that behavior. The patient has a history of several medical conditions as listed below. He also has a history of depression and anxiety and is on Zoloft for that. When specifically asked about hallucinations, both he and his deny any visual or auditory hallucinations. Therefore, I am not quite certain about the source of "hallucinations and paranoia" that is mentioned in the ED notes, as I was not able to find any history suggestive of these two. Otherwise, there has not been any report of any other neurological symptoms such as no diplopia, dysphagia, or weakness in the arms or legs. PAST MEDICAL HISTORY: 1. History of [place] in 1994. 2. History of aortic valve insufficiency with aortic valve replacement in [address] [employer] valve, has been on Coumadin since. 3. Reconstruction of the proximal aorta at the same time that AV replacement was done. 4. Hyperlipidemia. 5. Depression. 6. GERD. 7. AFib, and SVT; has an ICD placed. PAST SURGICAL HISTORY: 1. History of hip replacement in March 2016. Per patient is supposed to have another surgery soon 2. History of wrist surgery in November 2017 as mentioned above. 3. History of ICD placement. 4. History of aortic valve replacement as mentioned above. 5. History of colonoscopy with removal of 2 tubular adenomas and hyperplasia in 2008. More recent colonoscopy 2 years ago was normal (per the patient) 6. History of CABG MEDICATIONS: The patient is on currently: 1. Warfarin 10 mg p.o. at bedtime. 2. Cialis 20 mg p.o. daily p.r.n. 3. Hydrocodone p.r.n., which he has not been taking since a few days after his wrist surgery. 4. Spironolactone 25 mg p.o. daily. 5. Zoloft 100 mg p.o. daily. 6. Crestor 40 mg p.o. at bedtime. 7. K-Maria Ines 20 mEq p.o. daily p.r.n. 8. Irbesartan 300 mg p.o. q.a.m. 9. Lasix 20 mg p.o. daily p.r.n. 10. Xanax 0.5 mg p.o. p.r.n. t.i.d. 11. Iron ALLERGIES: No known drug allergies. FAMILY HISTORY: The patient's father has history of cardiac disease. There is no particular neurological disease in the family. 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 Again, he states that in the past 3 weeks he has been working on a particular case that made him very stressed and upset. He has not been resting or eating very well in the past few weeks. He is a former smoker for 2 packs per week for about 30 years, but quit in 2002. He drinks may be about 5-10 drinks per week (average about 2 drinks per day). REVIEW OF SYSTEMS: Complete review of systems was performed and other than what mentioned above is negative. PHYSICAL EXAM: The patient's blood pressure is 157/108, pulse rate 98, respiratory rate 15, O2 sat 93% on room air. The patient is awake, alert, oriented to time, place and person. His speech is fluent without dysarthria. At some point he seems to be irritable and restless. He is nonetheless cooperative and although gets sometimes a bit irritated, remains pleasant. The patient's pupils are symmetric and reactive to light. Extraocular movements are intact. Visual rosario are intact by confrontation. The face is symmetric. V1 to V3 is intact to light touch and pinprick. Tongue is in midline. Palate elevates upward. V1 to V3 is intact to light touch and pinprick as mentioned above. Muscle tone is normal. There is a very mild bilateral postural tremor in arms. Strength is 5/5 throughout. There is no pronator drift. Sensation is intact to light touch and pinprick. Maybe slight decrease in the vibration in the distal lower extremities. Deep tendon reflexes are brisk in the upper extremities, but 2+ in the lower extremities and symmetric. Glabellar sign is negative. Snout reflex is negative. Onirdw-da-yqew is intact bilaterally with no action tremor or dysmetria. The left wrist is in a cast up to mid forearm. Gait is narrow based and steady. Heart has a regular rate and rhythm. Lungs are clear to auscultation. Abdomen is soft and nontender. What was noticeable during the exam was that the patient frequently turned his head toward the left side, as if there was muscle contraction in his neck, or similar to a tic. His mentioned she had noticed that as well. I did a MoCA test (paper test placed in the paper chart). The patient scored 22 /30 with losing 5 scores in the visual spatial and 2 scores in delayed recall ( 2 items he remembered with category cue). Also lost 1 score in attention. Otherwise, he did every well in the serial 7s and in the language. LABORATORY DATA: WBC 7.4, hemoglobin 14.4, and hematocrit 42. Sodium 138, potassium 3.3, creatinine 0.98, BUN 26, glucose 133. Urine is clean and U-tox is negative. INR is 1.78. TSH is WNL. IMAGING: The patient had a CT of the head, which showed no acute findings. ASSESSMENT AND PLAN: The patient is a 72-year-old male with history of aortic valve replacement and for the past 15 years and been on anticoagulation. He was taken off Coumadin in early November for a few days for his wrist surgery but it was resumed afterward. His INR, however, is subtherapeutic today. He has been brought to the hospital with recommendation of his PCP because of change in mood and behavior in the past few weeks (a week after the wrist surgery). Although in the ED notes it has been mentioned he has been referred for evaluation of "hallucinations and paranoia", I did not find anything particularly pointing to hallucination and paranoia in the history ( specifically asked him and his about those). But there is certainly some change in the patient's mood and behavior such as increased restlessness, anxiety and irritability. Neurological exam is nonfocal other than a very mild postural tremor bilaterally; however, what concerns me is the patient's extremely poor performance in the visuo-spatial part of the MOCA test. On the other hand, he did particularly well in other parts of the MoCA test including attention and language. The constellation of patient's signs and symptoms does not portray an encephalopathic picture either, but as mentioned the change in his behavior along with the poor performance in the visual spatial part of MoCA is concerning for a structural or functional abnormality in the right parietal area. Given that his INR is subtherapeutic (in the setting of mechanical valve) I am concerned about small embolic strokes especially in that region. Therefore, obtaining an MRI is essential. Also, I would like to get an EEG in addition to the MRI of the brain. This was discussed with the patient and his . The patient was adamant about wanting to leave the hospital. It was also discussed with Dr. Neri who thought the patient does not have the capacity to make decisions (although I do not necessarily thinks so) and eventually he arranged the patient to be admitted for further evaluation as outlined above. After the result of the MRI and EEG is back, and if they are unrevealing and the symptoms persist or fluctuate then he may need an LP and/or blood workup to further explore the possibility of autoimmune or paraneoplastic encephalitis, as those entities can sometimes present with behavioral and personality changes. However, given the patient's history of increased stress recently, primary psychiatric disorders also need to be kept in the differential if the workup turns out negative. I will sign out this case to one my oncoming neurology colleagues on Monday for follow up. Time spent at bedside at least 60 minutes. [id number]/[facility] #: [id number] BENNY
--- NOTE | 2017-12-10 20:50 | HP ---
CC: Dr. Steward * HISTORY AND PHYSICAL: DATE OF ADMISSION: 12/10/17 PROVIDER: Luiza Clark NP PRIMARY CARE PROVIDER: Dr. Steward. ATTENDING PHYSICIAN WHILE IN THE HOSPITAL: Dr. London Honeycutt * (dictated by Luiza Clark NP) CHIEF COMPLAINT: 1. Confusion. 2. Insomnia. HISTORY OF PRESENT ILLNESS: Mr. Emmanuel is a 72-year-old male patient, he carries a past medical history significant for coronary artery disease with aortic valve replacement, hypertension, hyperlipidemia, who presented to the emergency room with restlessness. The patient reports that he has become progressively worsening anxiety and restlessness since he recently fractured his left wrist, he feels that due to being unable to naturally do things as he could prior to his wrist fracture, it is increasing his anxiety. The patient reports that he has had multiple nights of interrupted sleep and staying he would sleep for an hour and then he would be awake for an hour. He does report that he has been trying to sleep 6 to 7 hours a night. His does report that last Monday his irritability and restlessness has progressively gotten worse over the past week. He does report on Monday at approximately 4 p.m. he was at work and he was unable to figure out something on his computer that frustrated him and he does report that he spent an hour and a half trying to figure out how to use his computer and was very frustrated and went home, he felt anxious and irritable. The did report that after he had a drink of alcohol, he did calm down. The patient states that he just needs to have some rest, needs to clear his mind. He denies any recent illnesses. Denies any fever or chills. Denies any chest pain. Denies any cough, shortness of breath , or hemoptysis. Denies any nausea, vomiting, or diarrhea. Denies any abdominal pain. Denies any gross hematuria or dysuria. Denies any focal weakness or sensory loss. Denies any changes in his vision. Denies any difficulty swallowing. He denies any joint or muscle aches. He does report that he walks slower but he does report that as he is being cautious as he does not want to fall again. He does report some increased depression since when he fractured his left wrist and does also report increased anxiety as well. Due to his restlessness and anxiousness, we were asked to see and evaluate him for admission. PAST MEDICAL HISTORY: Significant for: 1. Hypertension. 2. Coronary artery disease with aortic valve replacement in 2001. 3. Hyperlipidemia. 4. Depression. 5. Anxiety. 6. GERD. 7. Supraventricular tachycardia. PAST SURGICAL HISTORY: 1. Left hip replacement. 2. Left wrist fracture reduction. 3. Aortic valve replacement. 4. CABG in 2002. 5. SVT ablation in 2002. MEDICATIONS: Home medications include: 1. Crestor 40 mg p.o. daily. 2. Furosemide 20 mg 1 tablet p.r.n. only for weight increase of greater than 2 pounds. 3. Klor-Con 20 mEq 1 p.o. as directed with furosemide. 4. Coumadin 10 mg p.o. daily. 5. Avapro 300 mg p.o. daily. 6. Aldactone 25 mg p.o. daily. 7. Cialis daily as needed. 8. Iron 150 mg 1 p.o. daily. 9. Sertraline 100 mg 1 p.o. daily. 10. Xanax 0.5 one tablet p.o. daily. ALLERGIES: Allergy to COREG. FAMILY HISTORY: Father with a history of CA and CHF. No reported history of diabetes or cancer. SOCIAL HISTORY: The patient reports he quit smoking in 2002, prior to that he smoked a half-a-pack a day. Alcohol, he does report daily alcohol use of 2 drinks daily. He also reports regular marijuana use, last used yesterday. 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 His surrogate decision maker in the event he is unable to make his own decisions would be his Jeny, her phone number is . He is a full code. REVIEW OF SYSTEMS: There is no documented fever. There has been no significant weight change. There is no double vision. No headache. No dizziness. Denies any ear discharge. Denies sore throat. He has had no chest pain or shortness of breath. No orthopnea or nocturnal dyspnea. There was no abdominal pain. No nausea, vomiting, or diarrhea. No dysuria or urinary frequency. He denies any loss of consciousness. He denies any pruritus or skin ulcerations. A review of 14- systems was completed and all others were negative. PHYSICAL EXAMINATION GENERAL: At this time, Mr. Emmanuel is a 72-year-old male. He appears slightly anxious, sitting on the edge of the bed. He does not appear to be in any acute distress. VITAL SIGNS: Blood pressure 145/45, temperature was 98.1, heart rate was 92, respirations were 20, O2 saturation was 98%. HEENT: Head is atraumatic, normocephalic. Eyes: EOMs are intact. Sclerae anicteric and not pale. He does have some lateral nystagmus. Oral mucosa appears to be moist. NECK: Supple. LUNGS: Clear to auscultation bilaterally. No wheezes, rales, or rhonchi. CARDIAC: S1, S2. There are no rubs or gallops. He does have a click. ABDOMEN: Soft, flat, and nontender. Bowel sounds are active x4. EXTREMITIES: Pulses are +2 throughout. He is able to move all 4 extremities with 5/5 strength. He does have a hard cast intact to his left wrist. CMSTs are intact to his fingers. NEUROLOGIC: He is awake, alert, and oriented x3. Upper extremity strength is equal. He does have a cast to his left wrist making it difficult for handgrip strength. Shoulder shrug is equal. Tongue is midline. Speech is clear. Finger- to-nose is intact. Hand dexterity is intact. Repetitive motion is intact. He does have some lateral nystagmus noted and does have difficulty following your finger with his eyes and not moving his head. SKIN: Intact. DIAGNOSTIC STUDIES/LAB DATA: WBCs are 7.4, RBCs 4.54, hemoglobin was 14.1, hematocrit was 42, platelet count was 207. INR was 1.78. Sodium 138, potassium was 3.3, chloride was 106, carbon dioxide was 23, anion gap was 9, BUN was 26, creatinine 0.98. Ammonia was 38. ASTs were 36, ALTs were 28. Troponin was 0.06 and 0.07. TSH was 1.72. Urine tox was negative for salicylates and acetaminophen. Alcohol was less than 10. EKG showed sinus rhythm with PACs at a rate of 101 and PVCs, QTc was 514. He had a CT of the brain, radiologist's impression: No intracranial mass or hemorrhage was noted. ASSESSMENT AND PLAN: Mr. Emmanuel is a 72-year-old male who presented to the emergency room with complaints of increased restlessness and insomnia. We were asked to see and evaluate him due to his anxiety and restlessness. He will be admitted under observation for: 1. Restlessness. The patient has recently had increased stress due to a left wrist fracture for which he has a cast at this time. He feels that this is contributing to his symptoms of insomnia as well as not being able to function as he normally does. Given his event on Monday with difficulty using his computer, we will work him up for a stroke. We will get an MRI and an EEG to rule out seizures. He was seen and consulted by Neurology. He will have an aspirin. We will continue his Coumadin at 10 mg. Also on the differential is Wernicke's encephalopathy as the patient is a daily drinker. We will give him some thiamine and some IV fluids. His episode of restlessness and anxiety could also be related to depression. This could be a feature of some liang. 2. Hypertension. We will continue him on spironolactone and Avapro. 3. Coronary artery disease with valve replacement. He will continue on his warfarin 10 mg p.o. at bedtime. 4. Depression. He should continue on his sertraline 100 mg p.o. daily. 5. Anxiety. He can have Xanax 0.5 mg t.i.d. as needed for anxiety. 6. Elevated troponin. We will continue to trend his troponins. The patient currently denies any chest pain or shortness of breath. Denies any shortness of breath with exertion. If he does develop chest pain or shortness of breath, we will further work him up for cardiac related issues. 7. Daily alcohol use. We will place him on WA protocol and monitor him for signs and symptoms of withdrawal. 8. FEN. He can have a regular diet. 9. Code status. He is a full code. 10. DVT prophylaxis. We will continue him on Coumadin. 11. Disposition. He will be placed inpatient. TIME SPENT: Time spent on this admission was approximately 60 minutes, greater than half that time was spent [id number] with the patient obtaining my history and physical, the other half of the time was spent going over my plan of care with the patient and implementing my plan of care. I have discussed this with my attending, Dr. London Honeycutt; he is in agreement with my plan. LUIZA CLARK, ADMISSIONS CLINICIAN [id number]/[facility] #: [id number] [facility]
[2017-12-10] MEDS ORDERED: Melatonin 3 MG TAB PO SCH (21:00)
[2017-12-10] MEDS ORDERED: CMCS Rosuvastatin (NF) 20 MG TAB PO SCH (21:00)
[2017-12-10] MEDS ORDERED: NS 0.9% 250 ML* 250 ML ONE (21:05)
[2017-12-10] MEDS: Heparin VIAL(*) 5000 UNITS/ML VIAL (FIVE THOUSAND) SUBCUT SCH (21:11)
[2017-12-10] MEDS: Thiamine IV* 500 MG in NS 0.9% 250 ML* 250 ML IV SCH (21:12)
[2017-12-11 01:38] LABS: Urine Appearance Cloudy; Urine Blood Negative (Negative); Urine Color Yellow; Urine Ketones Negative (Negative); Urine Protein Negative (Negative); Urine Specific Gravity 1.025 (1.010-1.030); Urine Urobilinogen Negative (Negative)
[2017-12-11] MEDS ORDERED: Magnesium Sulfate 2 GM IV* 2 GM/50 ML BAG IVPB ONE (02:57)
[2017-12-11] MEDS: Heparin VIAL(*) 5000 UNITS/ML VIAL (FIVE THOUSAND) SUBCUT SCH ×2 (05:32→14:05)
[2017-12-11 06:29] LABS: ABS Basophils 0 10^3/ul (0-0.2); ABS Eosinophils 0.1 10^3/ul (0-0.6); ABS Lymphocytes 0.9 10^3/ul (1.0-4.8); ABS Monocytes 0.4 10^3/ul (0-0.8); ABS Neutrophils 4.1 10^3/ul (1.5-7.7); ABS Nucleated RBC 0 10^3/ul; Eosinophil % 2.7 % (0-6); Hematocrit 38 % (42-52); Hemoglobin 12.6 g/dl (14.0-18.0); Lymphocyte % 16.8 % (25-47); Mean Corpuscular HGB Conc 33 g/dl (31-36); Mean Corpuscular Hemoglobin 31 pg (27-31); Mean Corpuscular Volume 93 fL (80-94); Mean Platelet Volume 8.2 um3 (7.4-10.4); Nucleated Red Blood Cells % 0; Platelet Count 185 10^3/ul (150-450); Red Blood Count 4.07 10^6/ul (4.00-5.40); Red Cell Distribution Width 14 % (10.5-15); White Blood Count 5.6 10^3/ul (3.5-10.8)
[2017-12-11 06:36] LABS: INR 2.05 (0.77-1.02)
[2017-12-11 06:44] LABS: EGFR Non-African American 86.5 (>60)
[2017-12-11] MEDS ORDERED: Sertraline* 50 MG TAB PO SCH (09:00)
[2017-12-11] MEDS ORDERED: Losartan TAB* 25 MG PO SCH (09:00)
[2017-12-11] MEDS ORDERED: Spironolactone TAB* 25 MG PO SCH (09:00)
[2017-12-11] MEDS: Folic Acid TAB* 1 MG PO SCH (09:07)
[2017-12-11] MEDS: Multivitamins/Minerals TAB PO SCH (09:07)
[2017-12-11] MEDS: LORazepam INJ* 2 MG/ML 1 ML VIAL IM SCH (09:26)
[2017-12-11] MEDS: Thiamine IV* 500 MG in NS 0.9% 250 ML* 250 ML IV SCH ×2 (09:57→15:20)
[2017-12-11 13:54] VITALS: BP 144/106
--- NOTE | 2017-12-11 15:10 | PN ---
Subjective Date of Service: 12/11/17 Interval History: In brief, Mr. Emmanuel is a 72-year-old man who has history of alcohol use, ANGIE s /p replacement with mechanical [employer] Valve and is on coumadin, hypertension , depression, atrial fibrillation and SVT who has an MRI incompatible ICD who presented to [facility] with symptoms of change in mood and behavior within the past few weeks. He had a wrist injury s/p surgery in early November 2017 and the patient has not been himself since. His is concerned about his nutritional status as he has not been eating well and does seem to like to consume alcohol at night. There has been no change in his alcohol intake which on average is 2 beers a day. The patient was admitted for evaluation. MRI cannot be obtained due to ICD. CT head was unremarkable. He had an EEG that was unremarkable. The patient was noticed to have extra-ocular muscular abnormalities on admission and confusion that seems to have improved after IV thiamine. Dr. Stephan López evaluated the patient and was concerned for a right parietal stroke. Pt has no focal neurological deficits on my assessment today other than he felt impulse, irritabile, and wanted to go home. S: Today, he feels well. He denied any headache, visual disturbance or focal weakness or paresthesias. Objective Active Medications: Acetaminophen (Tylenol Tab*) 650 mg PO Q4H PRN PRN Reason: FEVER/PAIN Folic Acid (Folvite Tab*) 1 mg PO DAILY [facility] Last Admin: 12/11/17 09:07 Dose: 1 mg Furosemide (Lasix Tab*) 20 mg PO DAILY PRN PRN Reason: fluid Heparin Sodium (Porcine) (Heparin Vial(*)) 5,000 units SUBCUT Q8HR [facility] Last Admin: 12/11/17 14:05 Dose: 5,000 units Thiamine HCl 500 mg/ Sodium (Chloride) 255 mls @ 255 mls/hr IV TID [facility] Stop: 12/12/17 09:59 Last Admin: 12/11/17 09:57 Dose: 255 mls/hr Lorazepam (Ativan Inj*) 0 - 6 mg IM .PER [facility] PROTOCOL [facility]; Protocol Last Admin: 12/11/17 09:26 Dose: 2 mg Losartan Potassium (Cozaar Tab*) 100 mg PO QAM [facility] Last Admin: 12/11/17 09:05 Dose: 100 mg Melatonin (Melatonin) 3 mg PO BEDTIME [facility]; Protocol Last Admin: 12/10/17 21:12 Dose: 3 mg Multivitamins/Minerals (Theragran/Minerals Tab*) 1 tab PO DAILY [facility] Last Admin: 12/11/17 09:07 Dose: 1 tab Ondansetron HCl (Zofran Inj*) 4 mg IV Q4H PRN PRN Reason: NAUSEA/VOMITING Oxycodone/Acetaminophen (Percocet 5/325 Tab*) 1 tab PO Q4H PRN PRN Reason: PAIN Pharmacy Profile Note (Coumadin Daily Reminder*) 1 note FOLLOW UP 1700 [facility] Last Admin: 12/10/17 18:26 Dose: 1 note Potassium Chloride (Klor Con Er Tab*) 20 meq PO DAILY PRN PRN Reason: fluid retention Rosuvastatin Calcium (Crestor (Nf)) 40 mg PO BEDTIME [facility] Last Admin: 12/10/17 21:12 Dose: 40 mg Sertraline HCl (Zoloft*) 100 mg PO QAM [facility] Last Admin: 12/11/17 09:06 Dose: 100 mg Spironolactone (Aldactone Tab*) 25 mg PO QAM [facility] Last Admin: 12/11/17 09:06 Dose: 25 mg Warfarin Sodium (Coumadin Tab(*)) 10 mg PO BEDTIME [facility]; Protocol Last Admin: 12/10/17 21:12 Dose: 10 mg Vital Signs 12/10/17 12/10/17 12/10/17 15:30 15:55 15:57 Temperature 99 F 98.1 F 98.1 F Pulse Rate 88 92 92 Respiratory 16 20 20 Rate Blood Pressure 148/100 145/45 145/45 (mmHg) O2 Sat by Pulse 95 98 98 Oximetry 12/10/17 12/10/17 12/10/17 16:28 16:52 18:03 Temperature 98.2 F Pulse Rate 92 Respiratory 20 20 24 Rate Blood Pressure 131/75 (mmHg) O2 Sat by Pulse 96 Oximetry 12/10/17 12/10/17 12/10/17 18:26 18:27 19:35 Temperature Pulse Rate Respiratory 16 16 20 Rate Blood Pressure (mmHg) O2 Sat by Pulse Oximetry 12/10/17 12/10/17 12/10/17 20:04 20:07 20:14 Temperature 98.5 F Pulse Rate 95 Respiratory 16 16 16 Rate Blood Pressure 140/71 (mmHg) O2 Sat by Pulse 97 Oximetry 12/10/17 12/10/17 12/10/17 20:51 22:00 22:08 Temperature Pulse Rate Respiratory 20 20 20 Rate Blood Pressure (mmHg) O2 Sat by Pulse Oximetry 12/10/17 12/10/17 12/10/17 22:16 22:18 23:35 Temperature 97.3 F Pulse Rate 87 Respiratory 20 20 21 Rate Blood Pressure 133/86 (mmHg) O2 Sat by Pulse 95 Oximetry 12/10/17 12/11/17 12/11/17 23:36 00:00 00:14 Temperature 99.5 F Pulse Rate 82 Respiratory 21 20 20 Rate Blood Pressure 142/102 (mmHg) O2 Sat by Pulse 94 Oximetry 12/11/17 12/11/17 12/11/17 02:14 04:00 04:05 Temperature 99.1 F 98.9 F Pulse Rate 84 84 Respiratory 20 20 16 Rate Blood Pressure 148/94 174/90 (mmHg) O2 Sat by Pulse 93 96 Oximetry 12/11/17 12/11/17 12/11/17 04:16 06:00 07:47 Temperature 98.1 F 97.9 F Pulse Rate 92 87 Respiratory 20 22 20 Rate Blood Pressure 139/119 170/103 (mmHg) O2 Sat by Pulse 94 93 Oximetry 12/11/17 12/11/17 12/11/17 09:26 13:48 13:56 Temperature 98.4 F Pulse Rate 92 Respiratory 18 16 20 Rate Blood Pressure 144/106 (mmHg) O2 Sat by Pulse 96 Oximetry Oxygen Devices in Use Now: None Neurology Exam: General: Well appearing man who is slightly irritable but cooperative. HEENT: Normocephelic/atraumstic, sclera anicteric. Neck: Supple Chest: Clear to auscultation bilaterally Cardiovascular: Regular rate and rhythm without murmurs, rubs, gallops Extremities: No clubbing, cyanosis, or edema. Cast over the left arm. Neurological Findings: Awake, Alert, Oriented to person, place and time. No dysarthria or dysphagia. Cranial Nerve: PEERL, EOM intact, VFF, no nystagmus, face symmetric bilaterally , facial sensation intact, hearing intact to finger rub bilaterally, palate elevates symmetrically, tongue midline, SCM and Trapezius s/s. Motor: s/s throughout, proximal and distal extremities x4 tone/bulk normal Sensation: intact to LT/PP bilaterally upper and lower extremities Deep Tendon Reflex: 2+ symmetric in the upper/lower extremities, Babinski - down going Finger to nose, rapid alternating movements intact without tremor Gait: wide based no ataxia. He was swaying toward the right side. Result Diagrams: 12/11/17 05:54 12/11/17 05:54 Assessment/Plan Mr. Manan Emmanuel is a 72-year-old man who presented to [facility] with gradual onset irritable behavior, agitation, and restlessness. On neurological examination, he had no focal neurological deficit the patient scored poorly in the MoCA raising the concern for a possible right MCA stroke involving the right parietal region. However, the patient improved and was nearly back to his normal self after high dose thiamine ; thus making the likelihood for stroke or seizure unlikely the cause. Other rare etiologies such as autoimmune or paraneoplastic encephalitis are less likely since his EEG is unremarkable and the symptoms seem to slowly improve. I am concerned that the patient may have some alcohol dependency and could reach a point where he will have withdrawal. The patient is not ready to quit drinking and has the capacity to make his own medical decisions at this point. I discussed this with Mrs. Emmanuel who was at bedside. She felt that the patient looks much better than yesterday but believes that he will not stop drinking. She also endorsed that most of his current problems are related to stress concomitant with alcohol consumption. He did agree to follow-up with our neurologists at [facility] to be evaluated for any underlying cognitive dysfunction given the low score on MoCA which correlates to a mild cognitive state. He will be contacted by the staff for an appointment. I don't recommend any further work-up while he's hospitalized. If the behavior worsen, we will evaluate for a an underlying neuro-cognitive disorder (e.g., FTD). I recommend discharge with daily vitamin B1 supplementation 100 mg a day. I discussed the case with Leonie who will discharge the patient today. I spent a total of 35 minutes of which 50% consisted of discussing the care with the patient and spouse at bedside.
--- NOTE | 2017-12-11 15:31 | PN ---
Hospitalist Progress Note Date of Service: 12/11/17 . HOSPITALIST DISCHARGE NOTE: See dc instructions and summary by me. Patient stable for dc dc instructions reviewed with the patient at the bedside. DC patient home today.
--- NOTE | 2017-12-12 00:48 | EEG ---
ELECTROENCEPHALOGRAPHY: DATE OF STUDY: 12/11/17 - ROOM #437 DATE READ: 12/11/17. CLINICAL PROBLEM: Generalized malaise, staring of episodes. DURATION: 10:25 a.m. - 10:50 a.m. MEDICATIONS: 1. Folate. 2. Cozaar. 3. Multivitamins. 4. Zoloft. 5. Aldactone. 6. Vitamin B1. 7. Heparin. 8. Coumadin. 9. Melatonin. 10. Rosuvastatin. 11. Tylenol. 12. Lasix. 13. Zofran. 14. Percocet. 15. Ativan. CLINICAL STATE: Awake and sleep. ORDERING PHYSICIAN: Dr. London Honeycutt. REPORT: The waking background showed appropriate organization with clearly defined anterior-posterior voltage and frequency gradients. There was a well- defined posterior dominant rhythm of 9 Hz, which was symmetrical, showed normal activity. Anteriorly, there was an expected pattern of lower voltage, irregular , mixed faster frequency. They were superimposed intervals of diffuse faster beta frequencies seen throughout the recording. There was attenuation of the posterior dominant rhythm seen during drowsy state. There was well formed symmetrical sleep spindles, vertex waves and K-complexes throughout the majority of the study since there was mostly recorded in sleep state. There were no epileptiform discharges. CLINICAL IMPRESSION: This is a normal awake and sleep study with excessive beta frequency which can be seen with benzodiazepine use. There were no electrographic seizures. A normal interictal EEG does not exclude or support the diagnosis of epilepsy. Clinical correlation is recommended. [id number] #: [id number] MTDD
--- NOTE | 2017-12-12 02:19 | DS ---
CC: Dr. Steward.* DISCHARGE SUMMARY: DATE OF ADMISSION: 12/10/17 DATE OF DISCHARGE: 12/11/17 PRIMARY CARE PROVIDER: Dr. Wes Steward. PRINCIPAL DISCHARGE DIAGNOSES: 1. Metabolic encephalopathy of unclear etiology, possibly Wernicke's encephalopathy relating to substantial alcohol use. 2. Possible delirium secondary to insomnia perhaps secondary to a manic state - further exploration needed. SECONDARY DIAGNOSES: 1. Hypertension. 2. Coronary artery disease with aortic valve replacement in 2001. 3. Hyperlipidemia. 4. Depression. 5. Anxiety. 6. Gastroesophageal reflux disease. 7. Supraventricular tachycardia. Surgical history noted for aortic valve replacement/CABG in 1999/SVT ablation in 2002. DISCHARGE MEDICATIONS: Unchanged from admission and include: 1. Crestor 40 mg by mouth daily. 2. Furosemide 20 mg as needed for weight increase of greater than 2 pounds. 3. Klor-Con 20 mEq by mouth as directed with furosemide. 4. Coumadin 10 mg by mouth daily. 5. Avapro 300 mg by mouth daily. 6. Aldactone 25 mg by mouth daily. 7. Cialis daily as needed. 8. Iron 150 mg by mouth daily. 9. Sertraline 100 mg by mouth daily. 10. Xanax 0.5 mg by mouth daily. Additional medications prescribed/new medications: 1. Folic acid 1 mg by mouth daily. 2. Thiamine 100 mg per tablet - 2 tablets daily for 1 month, then stop. HISTORY OF PRESENT ILLNESS AND HOSPITAL COURSE: Please see the H and P dictated by nurse practitioner, Luiza Clark, under my supervision on . In brief, Mr. Emmanuel is a 72-year-old gentleman with a medical history detailed above, who presents with worsening anxiety and restlessness for the past month approximately since fracturing his left wrist. The patient's anxiety is getting worse secondary to not being able to do the things he wants to do prior to his wrist fracture. He described significant interrupted sleep; however, he would intermittently sleep for 1 hour and then be awake for 1 hour in an alternating pattern. He has been trying to sleep 6 to 7 hours night, but has been unsuccessful. The patient has sent some unclear texts. There is also report that the patient has calms himself with alcohol. He does drink on a daily basis. The patient was evaluated in the emergency room and there was some concern for perhaps a cerebrovascular explanation for this situation and an MRI was ordered, though that was not possible because the patient has an MRI incompatible defibrillator in situ. The patient did have an EEG, which was normal and did not show any epileptiform activity. The patient had only minor lab abnormalities including hypokalemia at 3.3 and an elevated BUN to creatinine ratio of 26.5, though he was hydrated during the hospitalization. The patient has persistently indeterminate, but low grade. The patient does have known cardiovascular disease, although it is very unlikely this represents any sort of a coronary symptom. The patient was positive for both benzodiazepines and cannabinoids, though he was reluctant to reveal his THC use. I added that THC can induce psychosis in percentage of patients. The patient was placed on a WAM protocol because of the high likelihood of withdrawal. There were several individuals in the hospital, including the patient's primary care provider by phone who were tasked with bringing alcohol to the patient, although none of them obliged. The patient is being discharged on his insistence, though I do not have a firm diagnosis that end. My instinct is that this is alcohol related, although that cannot be firmly proven. The patient does seem quite anxious and has inquired about the appropriate amount of alcohol to drink. I asked that he endeavor to taper his alcohol use. He claimed he is somewhat evasive about the exact amount he drinks , but I asked that he not drink more than he currently does, and try to decrease his alcohol intake every few days by at least 1 serving and that if he has any problems he should partner with his primary care provider to use outpatient benzodiazepines for this taper. The patient rightly inquired about his ability to drive and I asked that he not drive until he demonstrate several days of consistent behavior and stability. I asked that his first time's driving would be with another adult present and in a safe circumstance and he appreciated that instruction. I asked that he consider a risk-benefit calculation in deciding if he was able to drive and his was present for this discussion, and said she would help with this determination. He seemed to accept that he would not drive for at least the next few days and that in the interim, he would be evaluating his ability to do so in conjunction with his . In terms of followup, I am going to reach out to his primary care doctor to bring him in the next week to reevaluate him. This very well might be a primary psychiatric problem with bipolar depression with liang that was not fully explored during this hospitalization because the patient was insistent on leaving before the medical component of his workup was completed. Mr. Emmanuel has excellent access to care and has got an attentive and confident he can reengage in the medical system if he experiences any problems. TIME SPENT: Total time taken to discharge Mr. Emmanuel was 75 minutes, greater than half of that time spent going over the discharge instructions with the patient and his at the bedside in the presence of nursing staff. CONDITION AT DISCHARGE: Stable. [id number] #: [id number] MTDD
== END 2017-12-11 15:52 | disposition home or self-care (01) | DRG 71 ==
LOC: ED 09:36 → MEDTELE 14:50
PROVIDERS: ADMIT Internal Medicine; ATTEND Internal Medicine
DX: G93.41 Metabolic encephalopathy (principal); E51.2 Wernicke's encephalopathy; I47.1 Supraventricular tachycardia; R41.0 Disorientation, unspecified; F51.05 Insomnia due to other mental disorder; G47.00 Insomnia, unspecified; I25.10 Atherosclerotic heart disease of native coronary artery without angina pectoris; F10.10 Alcohol abuse, uncomplicated; I11.9 Hypertensive heart disease without heart failure; E78.5 Hyperlipidemia, unspecified; W19.XXXD Unspecified fall, subsequent encounter; F32.9 Major depressive disorder, single episode, unspecified; F41.9 Anxiety disorder, unspecified; K21.9 Gastro-esophageal reflux disease without esophagitis; Y90.0 Blood alcohol level of less than 20 mg/100 ml; E87.6 Hypokalemia; Z96.642 Presence of left artificial hip joint; Z79.01 Long term (current) use of anticoagulants; Z95.2 Presence of prosthetic heart valve; Z95.1 Presence of aortocoronary bypass graft; Z79.899 Other long term (current) drug therapy; Z88.8 Allergy status to other drugs, medicaments and biological substances; Z82.49 Family history of ischemic heart disease and other diseases of the circulatory system; Z87.891 Personal history of nicotine dependence; S62.102D Fracture of unspecified carpal bone, left wrist, subsequent encounter for fracture with routine healing; Z95.810 Presence of automatic (implantable) cardiac defibrillator
CPT/HCPCS: 36415; 70450; 80053; 80307; 80320; 80329; 81003; 82140; 83615; 83735; 84132; 84443; 84484; 85025; 85610; 85730; 86618; 93005; 95819; 99284; A9270-GY; G0480; G8978-GP-CI; G8979-GP-CH; G8987-GO-CJ; G8988-GO-CH; J1644; J2060; J3411; J3475

== ENCOUNTER 2018-02-27 09:36 | Day surgery (SDC) | payer MEDICARE ==
[~2018-02-27 09:36] MED LIST changes: +Acetaminophen TAB* 325 MG PO PRN; -Dexamethasone TAB* 4 MG PO ONE; -Famotidine IV* 10 MG/ML 2 ML (20 mg) IV ONE; -Ondansetron INJ* 2 MG/ML VIAL ONE
[2018-02-27] MEDS ORDERED: fentaNYL* 50 MCG/ML 2 ML VIAL (100 MCG VIAL) ONE (10:40)
[2018-02-27] MEDS ORDERED: Midazolam* 1 MG/ML 2 ML VIAL (2 MG) ONE (10:40)
[2018-02-27 11:45] VITALS: BP 120/68
[2018-02-27] MEDS ORDERED: Tetracaine 0.5% OPTH.SOL 4 ML* 1 DROP BTL ONE (15:30)
[2018-02-27] MEDS ORDERED: Phenylephrine 2.5% OPTH.SOL* 2 ML BTL ONE (15:30)
[2018-02-27] MEDS ORDERED: Cyclopentolate 1% OPTH.SOL* 2 ML BTL ONE (15:30)
[2018-02-27] MEDS ORDERED: Lidocaine 1%* 5 ML VIAL ONE (15:30)
[2018-02-27] MEDS ORDERED: Neomycin/Polymy/Dex OPHTH.OIN* 3.5 GM ONE (15:30)
[2018-02-27] MEDS ORDERED: Ketorolac 0.5% OPHTH (NF) 0.5 % 5 ML BTL ONE (15:30)
[2018-02-27] MEDS ORDERED: Tropicamide 1% OPTH.SOL* BTL ONE (15:30)
--- NOTE | 2018-02-27 21:33 | OP ---
DATE OF OPERATION: 02/27/18 [facility] DATE OF : 47 SURGEON: Dr. Manan Franz. CLERICAL SPECIALIST: None. ANESTHESIA: Topical with intravenous sedation. PRE-OP DIAGNOSIS: Cataract, right eye. POST-OP DIAGNOSIS: Cataract, right eye. OPERATIVE PROCEDURE: Phacoemulsification and cataract extraction with posterior chamber intraocular lens implant, right eye. COMPLICATIONS: None. BLOOD LOSS: None. DESCRIPTION OF PROCEDURE: The patient was brought to the operating room and received a small amount of intravenous sedation. A drop of Tetracaine was placed in his right eye. He was prepped and draped in the usual sterile fashion for ophthalmic surgery and attention was directed to the right eye where a speculum was placed. A paracentesis was created at the 11 o'clock position and 0.1 cc of 1 percent preservative-free Lidocaine was injected into the anterior chamber followed by DisCoVisc. The eye was digitally stabilized while a 2.75 mm keratome was used to create a triplanar clear corneal incision at the 9 o'clock position. A continuous curvilinear capsulorrhexis was created with a cystotome and Utrata forceps. BSS on a cannula was used to hydrodissect the lens from the capsule. Phacoemulsification was performed in a divide-and- conquer technique to create four fragments which were removed. Residual cortical material was removed with irrigation and aspiration. DisCoVisc was used to inflate the capsular bag and an AU00T0 19.0 diopter lens was folded and inserted into the capsular bag. DisCoVisc was removed using irrigation and aspiration. BSS on a cannula was used to hydrate the corneal stroma and seal the wound. At the end of the case the pupil was round and the lens was centered. The eye was of normal pressure and the wound was water tight. The speculum was removed and topical Maxitrol ointment was placed on the surface of the eye. The eye was closed, patched and shielded and the patient was sent to the recovery room in stable condition with post operative instructions and follow-up appointment given. [id number]/CPS #: [id number]
== END 2018-02-27 11:55 | disposition home or self-care (01) ==
LOC: OREAST 09:36
PROVIDERS: ATTEND Ophthalmology
DX: H25.041 Posterior subcapsular polar age-related cataract, right eye (principal); F41.8 Other specified anxiety disorders; Z87.891 Personal history of nicotine dependence; I25.2 Old myocardial infarction; Z95.2 Presence of prosthetic heart valve; I47.1 Supraventricular tachycardia; Z79.01 Long term (current) use of anticoagulants
CPT/HCPCS: A9270-GY; J2250; J3010; V2632